=== PATIENT | female | born 1950 | race Caucasian/White ===

== ENCOUNTER 2016-04-24 19:07 | Observation (INO) | payer OTHER ==
[~2016-04-24] VITALS: Ht 160 cm; Wt 95.3 kg
[~2016-04-24 19:07] MED LIST: ABILIFY 10 MG10 MG PO; APA PO; ASPIRIN EC81 M1 PO; ATIVAN0.5 MG PO; ATIVAN1 M1 PO; ATIVAN1 MG PO; ATORVASTATIN CA80 MG PO; BENADRYL ALLERG25 M1 PO; BENTYL10 M1 PO; CLARITIN10 M1 PO; DILTIAZEM HCL240 MG PO; FARXIGA10 MG PO; FUROSEMIDE40 M1 PO; HYDROCODONE PO; HYDROCODONE/ACE1 TA2 PO; IRON SUPPLEMEN325 MG PO; LEVEMIR 10100 UNITS/ SC; LEVEMIR100 U/ML SC; LISINOPRIL40 MG PO; LOPID 600 MG T600 MG PO; LORATADINE10 M1 PO; LYRICA100 M1 PO; LYRICA75 MG PO; MASON NATURAL2000 IU PO; METFORMIN1000 MG PO; METOPROLOL SUC100 M2 PO; METOPROLOL SUC200 M1 PO; METOPROLOL SUC200 M2 PO; MOBIC7.5 MG PO; MULTIVITAMIN1 TAB PO; NOVOLOG100 U/ML SC; NOVOLOG100 UNIT/2 SC; OMEPRAZOLE MAGN20 MG PO; OMEPRAZOLE40 M1 PO; POTASSIUM GLUC595 MG PO; PROTONIX40 M3 PO; RITE AID BIO2500 MCG PO; TANZEUM30 MG IM; TANZEUM50 MG/0.5 SC; TOPAMAX 100MG100 M1 PO; TOPAMAX200 M1 PO; TOPAMAX200 MG PO; TRICOR 48MG48 MG PO; TRICOR48 M1 PO; TYLENOL500 MG PO; VENLAFAXINE HC100 M1 PO; VITAMIN D2400 UNIT PO; VITAMIN D3400 UNI1 PO; flexeril PO
--- NOTE | 2016-04-24 19:14 | NUR ---
PT STATES SHE WAS HAVING CHEST PAIN THAT HAS BEEN CONSTANT SINCE TUESDAY THAT RADIATES INTO HER LEFT SHOULDER AND DOWN HER ARM. PT STATES SHE DID NOT GET SOB BUT DOES HAVE DIAPHORESIS AT TIMES.
--- NOTE | 2016-04-24 19:29 | ED CARDIAC/CP/PALPITATIONS ---
History of Present Illness General Chief Complaint: Chest Pain Stated Complaint: CP Source: patient, family, old records Exam Limitations: no limitations Vital Signs & Intake/Output Vital Signs & Intake/Output Vital Signs Date Time Temp Pulse Resp B/P Pulse O2 O2 Flow FiO2 Ox Delivery Rate 04/24 2127 97.2 84 16 123/67 97 Room Air 04/24 2027 80 16 134/72 96 Room Air 04/24 1951 87 16 117/56 04/24 1938 Room Air 04/24 1913 97.6 89 16 134/80 97 Room Air Allergies Coded Allergies: shellfish derived (Severe, HIVES 05/13/15) Penicillins (RASH AND SWELLING 05/13/15) aspirin (UPSET STOMACH AND BLOATING 05/13/15) codeine (REALLY BAD STOMACH PAIN 05/13/15) Reconcile Medications Albiglutide (Tanzeum) 50 MG/0.5 ML PEN.INJCTR 50 UNITS SC QMON DM (Reported) Aripiprazole (Abilify) 10 MG TAB 1 TAB PO DAILY MENTAL HEALTH (Reported) Atorvastatin Calcium (Lipitor) 80 MG TABLET 1 TAB PO DAILY CHOLESTEROL ( Reported) Canagliflozin (Invokana) 100 MG TABLET 1 TAB PO DAILY DM (Reported) Cyanocobalamin (Vitamin B-12) (Vitamin B12) 2,500 MCG TABLET 1 TAB PO DAILY SUPPLEMENT (Reported) DILTIAZEM HCL (Diltiazem 24HR ER) 240 MG CAP.ER.24H 1 TAB PO DAILY HEART ( Reported) Fenofibrate (Tricor) 48 MG TABLET 1 TAB PO DAILY CHOLESTEROL/TRIGLYCERIDES ( Reported) Furosemide 40 MG TABLET 1 TAB PO DAILY DIURETIC (Reported) Insulin Aspart (Novolog) 100 UNIT/1 ML VIAL 0 SC SEE ADMIN CRITERIA Diabetes (Reported) BEFORE MEALS Blood Insulin Sugar Units <80 0 100-150 4 151-200 6 201-250 10 251-300 12 301-350 14 351-400 16 >400 18 units and call doctor Insulin Detemir (Levemir) 100 U/ML TOREY 20 UNITS SC BID DIABETES (Reported) Lisinopril 40 MG TABLET 1 TAB PO DAILY BP (Reported) Loratadine (Claritin) 10 MG TABLET 1 TAB PO DAILY ALLERGIES (Reported) Lorazepam (Ativan) 1 MG TABLET 2 TAB PO QAM ANXIETY (Reported) Meclizine HCl 25 MG TABLET 1 TAB PO TIDPRN UNKNOWN (Reported) Meloxicam 7.5 MG TABLET 1-2 TAB PO DAILY PAIN/INFLAMMATION (Reported) Metformin HCl 1,000 MG TABLET 2 TAB PO BID DM (Reported) Metoprolol Succinate 100 MG TAB.ER.24H 1 TAB PO DAILY HTN (Reported) Multivitamin (Multiple Vitamins) 1 TAB TAB 1 TAB PO DAILY SUPPLEMENT ( Reported) Pregabalin (Lyrica) 100 MG CAPSULE 2 CAP PO DAILY FIBROMYALGIA (Reported) Topiramate (Topamax) 200 MG TABLET 0.5 TAB PO BID Seizure (Reported) Venlafaxine HCl 100 MG TABLET 2 TAB PO DAILY MENTAL HEALTH (Reported) Triage Note: PT STATES SHE WAS HAVING CHEST PAIN THAT HAS BEEN CONSTANT SINCE TUESDAY THAT RADIATES INTO HER LEFT SHOULDER AND DOWN HER ARM. PT STATES SHE DID NOT GET SOB BUT DOES HAVE DIAPHORESIS AT TIMES. Triage Nurses Notes Reviewed? yes HPI: Patient is a 66-year-old female presents complaining of left-sided chest pain. Pain onset on , has been continuous for the past 2 days. Pain is a dull pain is currently 2-3 out of 10, at its worst it has been 4-5 out of 10. Patient reports that chest pain worsens with exertion. Patient has associated dyspnea with exertion. Intermittent in diaphoresis. Positive associated fatigue and lightheadedness intermittently. Patient reports she had a stress test 2 years ago that was unremarkable. Patient has an allergy to aspirin. Patient denies lower extremity pain, lower extremity swelling, palpitations, cough, fevers, chills, nausea, vomiting. (MICHELLE SHEEHAN) Past History Travel History Traveled to [place] past 21 day No Medical History Any Pertinent Medical History? see below for history Neurological: MENINGIOMA EENT: NONE Cardiovascular: AFIB, hypertension, hyperlipidemia Respiratory: NONE Gastrointestinal: NONE Hepatic: NONE Musculoskeletal: NONE Psychiatric: anxiety, depression Endocrine: diabetes (INSULIN DEPENDENT), thyroid nodules Blood Disorders: NONE Cancer(s): NONE HIDE TANNER/Reproductive: NONE History of MRSA: No History of VRE: No History of CDIFF: No Pneumonia Vaccine: 12/28/12 Surgical History Surgical History: appendectomy, hysterectomy, Knee surgey SINUS, LUMPECTOMY LEFT BREAST, MENINGIOMA RESECTION LEFT SHOULDER Psychosocial History Who do you live with Spouse Services at Home None What is your primary language [facility] Tobacco Use: Quit >30 days ago ETOH Use: denies use Illicit Drug Use: denies illicit drug use Family History Family History, If Any: MOTHER (Mother with ND in her 50's). ; Cause: Pneumonia. FATHER, ; Cause: Lung cancer. BROTHER, ; Cause: Brainstem hemorrhage. Hx Contributory? Yes (MICHELLE SHEEHAN) Review of Systems Review of Systems Constitutional: Reports: malaise. Denies: chills, fever. EENTM: Reports: no symptoms. Respiratory: Reports: short of breath (with exertion). Denies: cough, wheezing. Cardiovascular: Reports: see HPI. GI: Denies: abdominal pain, nausea, vomiting. Genitourinary: Reports: no symptoms. Musculoskeletal: Denies: back pain, neck pain. Skin: Reports: no symptoms. Neurological/Psychological: Reports: no symptoms. Hematologic/Endocrine: Reports: no symptoms. Immunologic/Allergic: Reports: no symptoms. (MICHELLE SHEEHAN) Physical Exam Physical Exam General Appearance: well developed/nourished, alert, awake Head: atraumatic, normal appearance Eyes: Bilateral: normal appearance, PERRL, EOMI. Ears, Nose, Throat: normal pharynx, normal ENT inspection, hearing grossly normal Neck: normal inspection, supple, full range of motion Respiratory: no respiratory distress, lungs clear, mild tenderness left anterior chest wall Cardiovascular: regular rate/rhythm (no appreciable murmur or rub) Gastrointestinal: soft, non-tender Back: normal inspection, normal range of motion Extremities: normal inspection, normal capillary refill, normal range of motion, no edema, no calf tenderness Neurologic/Psych: no motor/sensory deficits, awake, alert, oriented x 3, normal mood/affect Skin: intact, normal color, warm/dry Lymphatic: no anterior cervical rosy Core Measures ACS in differential dx? Yes ASA ordered for poss ACS? No-d/t known allergy Severe Sepsis Present: No Septic Shock Present: No (MICHELLE SHEEHAN) Progress Differential Diagnosis: AMI, aortic dissection, atrial fibrillation, costochondritis, musculoskeletal pain, pericarditis, pneumonia, PSVT, pulmonary embolism, PUD/GERD, unstable angina, V-fib/V-Tach Plan of Care: Orders Procedure Date/time Status Consistent Carbohydrate 2 04/25 B Active TROPONIN LEVEL 04/25 0100 Active Vital Signs 04/24 2228 Active Teach/Educate 04/24 2228 Active Nutritional Intake, Monitor 04/24 2228 Active Isolation 04/24 2228 Active Intake & Output 04/24 2228 Active Patient Care Conference 04/24 2228 Active Activity/Ambulation 04/24 2228 Active Pathway - chart 04/24 2219 Active Pathway - chart 04/24 2132 Active House Staff 04/24 2132 Active Code Status 04/[address] in observation 04/24 2041 Active Patient Data 04/24 2040 Active OXYGEN SETUP (GEN) 04/24 2019 Active Saline Lock 04/[address] in observation 04/24 2019 Active Vital Signs 04/24 2019 Active Activity/Ambulation 04/24 2019 Active Code Status 04/24 2019 Complete Telemetry/Roll Forming Supervisor 04/24 2004 Active Add-on Test (ER Only) 04/24 2001 Active Intake & Output 04/24 194 Active PARTIAL THROMBOPLASTIN TIME 04/24 1923 Complete PROTHROMBIN TIME 04/24 1923 Complete TROPONIN LEVEL 04/24 1917 Complete MAGNESIUM 04/24 1917 Complete COMPREHENSIVE METABOLIC PANEL 04/24 1917 Complete CHOLESTEROL 04/24 1917 Complete CBC WITHOUT DIFFERENTIAL 04/24 1917 Complete EKG 04/24 190 Active VTE Mechanical Prophylaxis 04/24 UNK Active FingerStick- Glucose 04/24 UNK Active EKG 04/24 UNK Active Current Medications Sig/Jayy Start time Last Medication Dose Stop Time Status Admin Atorvastatin Calcium 80 MG 2200 04/25 220 AC (Lipitor) Aripiprazole 10 MG DAILY 04/25 1000 AC (Abilify) Cyanocobalamin 2,500 MCG DAILY 04/25 1000 AC (Vitamin B12) Diltiazem HCl 240 MG DAILY 04/25 1000 AC (Cardizem CD) Fenofibrate 48 MG DAILY 04/25 1000 AC (Tricor) Furosemide 40 MG DAILY 04/25 1000 AC (Lasix) Lisinopril 40 MG DAILY 04/25 1000 AC (Prinivil) Loratadine 10 MG DAILY 04/25 1000 AC (Claritin) Lorazepam 2 MG QAM 04/25 1000 AC (Ativan) Multivitamins 1 TAB DAILY 04/25 1000 AC Therapeutic (Theragran-M Vitamins Tabs) Pregabalin 200 MG DAILY 04/25 1000 AC (Lyrica) Venlafaxine HCl 200 MG DAILY 04/25 1000 AC (Effexor) Acetaminophen 650 MG Q6P PRN 04/24 2229 AC (Tylenol) Lidocaine 1 PAT Q24H 04/24 2229 AC (Lidoderm) Morphine Sulfate 2 MG Q4P PRN 04/24 2229 AC (Morphine) Nitroglycerin 0.2 MG DAILY PRN 04/24 2229 AC (Transderm Nitro 5MG (0.2MG/Hr)) Oxycodone HCl 5 MG Q6H 04/24 2229 AC (Roxicodone) Topiramate 100 MG BID 04/24 2214 AC (Topamax) Insulin Detemir 20 UNITS BID 04/24 2204 AC (Levemir) Heparin Sodium 5,000 UNIT Q8 04/24 2199 AC (Porcine) Laboratory Tests 04/24/161925: Anion Gap 15, Estimated GFR > 60, BUN/Creatinine Ratio 25.0, Glucose 210 H, Calcium 9.6, Magnesium 2.1, Total Bilirubin 0.4, AST 21, ALT 39, Alkaline Phosphatase 144 H, Troponin I < 0.01, Total Protein 7.3, Albumin 4.3, Globulin 3.0, Albumin/Globulin Ratio 1.4, Cholesterol 200, CBC w Diff NO MAN DIFF REQ, RBC 5.80 H, MCV 60.3 L, MCH 18.5 L, RDW 21.3 H, MPV 8.4, Gran % 49.8, Lymphocytes % 39.2, Monocytes % 7.6, Eosinophils % 3.1, Basophils % 0.3, Absolute Granulocytes 3.7, Absolute Lymphocytes 2.9, Absolute Monocytes 0.6, Absolute Eosinophils 0.2, Absolute Basophils 0, PUBS MCHC 30.7 L 04/24/161923: PT 9.9, INR 0.94, APTT 26 04/24/2016 8:04:11 PM: Patient's pain went from 2-3/10 down to a 1/10 after sublingual nitroglycerin. Nitropaste ordered. Discussed with Dr. Blackwood. Dr. Kiah marino to discuss 04/24/2016 8:11:31 PM: Discussed with Dr. Dupont: Recommend bring patient in for observation, continue nitroglycerin. No heparin or beta blockers at this time. Dr. Blackwood discussed case with Dr. Albert covering for Dr. Nevarez to bring patient in for telemetry observation. (MICHELLE SHEEHAN) Diagnostic Imaging: Viewed by Me: Radiology Read. Discussed w/RAD: Radiology Read. Radiology Impression: PATIENT: MARIA ALEJANDRA RUBIO PRESENT AGE: 66 PATIENT ACCOUNT NO: [id number] : 52 LOCATION: [facility] ORDERING PHYSICIAN: MICHELLE EARLY SERVICE DATE: 04/24/16 EXAM TYPE: RAD - XRY-PORTABLE CHEST XRAY EXAMINATION: XR PORTABLE CHEST CLINICAL INFORMATION: Chest pressure COMPARISON: November 24, 2015 chest x-ray TECHNIQUE: Portable AP view of the chest was obtained. FINDINGS: The cardiomediastinal silhouette is normal. The pulmonary vascularity is normal. Lungs are clear. Elevation of diaphragmatic again noted, similar to prior exam. No pleural effusions or pneumothorax seen. IMPRESSION: Stable chest x-ray without acute cardiopulmonary finding. DICTATED BY: PRAVIN ASHLEY MD DATE/TIME DICTATED:04/24/161999 RAILROAD TRACK MECHANIC:DK DATE/TIME TRANSCRIBED:04/24/161999 CONFIDENTIAL, DO NOT COPY WITHOUT APPROPRIATE AUTHORIZATION. <Electronically signed in Other Vendor System> SIGNED BY: PRAVIN ASHLEY MD 04/24/162003 Initial ED EKG: normal axis, normal intervals, normal p-waves, normal QRS complex, normal sinus rhythm, no ST T wave changes Prior EKG: unchanged Rhythm Strip: normal sinus rhythm (MICHELLE SHEEHAN) Departure Departure Disposition: STILL A PATIENT Condition: Stable Clinical Impression Primary Impression: Chest pain Qualifiers: Chest pain type: unspecified Qualified Code: R07.9 - Chest pain, unspecified Referrals: DARRIN NEVAREZ MD (PCP/Family) Departure Forms: Customer Survey General Discharge Information Observation Note Spoke With: YANELIS ALBERT MD Patient In: Non-ED OBS Care Area Rationale for Observation: My rational for observation is as follows: Serial EKGs, serial troponins, cardiology consultation, continuous cardiac monitoring. Patient with multiple comorbidities that puts her at high risk for coronary artery disease with chest pain that was responsive to nitroglycerin. (MICHELLE SHEEHAN) PA/THERMOCOUPLE TESTER Co-Sign Statement Statement: ED Attending supervision documentation- x I saw and evaluated the patient. I have also reviewed all the pertinent lab results and diagnostic results. I agree with the findings and the plan of care as documented in the PA's/THERMOCOUPLE TESTER's documentation. [] I have reviewed the ED Record and agree with the PA's/THERMOCOUPLE TESTER's documentation. [] Additions or exceptions (if any) to the PAs/THERMOCOUPLE TESTER's note and plan are summarized below: [] (BEST JOHNSON,ISMAEL) Critical Care Note Critical Care Note Critical Care Time: non-applicable (LETI EARLY,MICHELLE)
[2016-04-24 19:33] LABS: ABSOLUTE BASOPHIL COUNT 0 /CUMM (0.0-0.2); ABSOLUTE EOSINOPHIL COUNT 0.2 /CUMM (0.0-0.7); ABSOLUTE GRANULOCYTE CT 3.7 /CUMM (1.4-6.5); ABSOLUTE LYMPH COUNT 2.9 /CUMM (1.2-3.4); ABSOLUTE MONOCYTE COUNT 0.6 /CUMM (0.10-0.60); BASOPHIL % 0.3 % (0.0-2.0); EOSINOPHIL % 3.1 % (0-5); GRANULOCYTE % 49.8 % (42.2-75.2); MEAN CORPUSCULAR HGB 18.5 PG (27.0-31.0); MEAN CORPUSCULAR HGB CONC 30.7 G/DL (33.0-37.0); MEAN CORPUSCULAR VOLUME 60.3 FL (81.0-99.0); MEAN PLATELET VOLUME 8.4 FL (7.4-10.4); PLATELET COUNT 244 /CUMM (130-400); RBC DISTRIBUTION WIDTH 21.3 % (11.5-14.5); WHITE BLOOD CELL COUNT 7.4 /CUMM (4.8-10.8)
--- NOTE | 2016-04-24 19:40 | NUR ---
PCXR IN PROCESS
--- NOTE | 2016-04-24 19:56 | NUR ---
PT REPORTED PRIOR TO 0.4MG SL NITRO ADMINISTRATION CHEST PAIN WAS 2/3 ON SCALE FROM 1-10. AFTER NITRO ADMINISTRATION PAIN NOW 1/10
--- NOTE | 2016-04-24 20:04 | RADIOLOGY REPORT ---
EXAMINATION: XR PORTABLE CHEST CLINICAL INFORMATION: Chest pressure COMPARISON: November 24, 2015 chest x-ray TECHNIQUE: Portable AP view of the chest was obtained. FINDINGS: The cardiomediastinal silhouette is normal. The pulmonary vascularity is normal. Lungs are clear. Elevation of diaphragmatic again noted, similar to prior exam. No pleural effusions or pneumothorax seen. IMPRESSION: Stable chest x-ray without acute cardiopulmonary finding.
[2016-04-24 20:24] LABS: PT 9.9 SEC (9.4-12.5); PTT 26 SEC (25-37)
[2016-04-24] MEDS ORDERED: TANZEUM50 MG/0.5 SC (20:39)
[2016-04-24] MEDS ORDERED: INVOKANA100 M1 PO (20:41)
[2016-04-24] MEDS ORDERED: VITAMIN B122500 MC1 PO (20:42)
[2016-04-24] MEDS ORDERED: CYCLOBENZAPRINE5 M2 PO (20:44)
[2016-04-24] MEDS ORDERED: MELOXICAM7.5 M1 PO (20:50)
[2016-04-24] MEDS ORDERED: METFORMIN HCL1000 M1 PO (20:51)
[2016-04-24] MEDS ORDERED: MECLIZINE HCL25 MG PO (20:51)
--- NOTE | 2016-04-24 21:01 | History & Physical ---
ALEXANDRA JOHNSON,[facility] 04/24/16 2100: General Information and HPI MD Statement: I have seen and personally examined MARIA ALEJANDRA HOLLINGSWORTH and documented this H&P. The patient is a 66 year old F who presented with a patient stated chief complaint of chest pain. Source of Information: patient, family, old records Exam Limitations: no limitations History of Present Illness: This is a 66-year-old lady with past medical history of type 2 diabetes mellitus , stroke, seizures(status post meningioma resection after craniotomy), hypertension, hyperlipidemia, gastric polyps(EGD 6 years ago), IBD, depression, baseline dizziness and history of fall and breaking her back, who presented to the emergency room complaining of chest pain. Patient stated that her symptoms began on 04/20/2016 with pain rated at a 4 out of 10 in severity. Described as a sharp pain. Worse with exertion. Patient did state that the pain radiated to her left arm and to her back. Pain was associated with subjective diaphoresis. Over last 48 hours the patient has continued to feel fatigued and shortness of breath on exertion. She also states that the pain is worse with palpation and deep inspiration. She denies that the chest pain is related to position. Patient states that she finally presented to the emergency department today even though the pain had been present for the last 48 hours because she was concerned that the pain did not ablate. Patient denies any exposure to any sick contacts and no recent travel. Patient denies any fever, chills, nausea, vomiting. Patient's primary care physician is Dr. Nevarez. Patient states that her lead technical writer is Dr. Patel who she saw 3 months ago. Allergies/Medications Allergies: Coded Allergies: shellfish derived (Severe, HIVES 05/13/15) Penicillins (RASH AND SWELLING 05/13/15) aspirin (UPSET STOMACH AND BLOATING 05/13/15) codeine (REALLY BAD STOMACH PAIN 05/13/15) Home Med list Albiglutide (Tanzeum) 50 MG/0.5 ML PEN.INJCTR 50 UNITS SC QMON DM (Reported) Aripiprazole (Abilify) 10 MG TAB 1 TAB PO DAILY MENTAL HEALTH (Reported) Atorvastatin Calcium (Lipitor) 80 MG TABLET 1 TAB PO DAILY CHOLESTEROL ( Reported) Canagliflozin (Invokana) 100 MG TABLET 1 TAB PO DAILY DM (Reported) Cyanocobalamin (Vitamin B-12) (Vitamin B12) 2,500 MCG TABLET 1 TAB PO DAILY SUPPLEMENT (Reported) DILTIAZEM HCL (Diltiazem 24HR ER) 240 MG CAP.ER.24H 1 TAB PO DAILY HEART ( Reported) Fenofibrate (Tricor) 48 MG TABLET 1 TAB PO DAILY CHOLESTEROL/TRIGLYCERIDES ( Reported) Furosemide 40 MG TABLET 1 TAB PO DAILY DIURETIC (Reported) Insulin Aspart (Novolog) 100 UNIT/1 ML VIAL 0 SC SEE ADMIN CRITERIA Diabetes (Reported) BEFORE MEALS Blood Insulin Sugar Units <80 0 100-150 4 151-200 6 201-250 10 251-300 12 301-350 14 351-400 16 >400 18 units and call doctor Insulin Detemir (Levemir) 100 U/ML TOREY 20 UNITS SC BID DIABETES (Reported) Lisinopril 40 MG TABLET 1 TAB PO DAILY BP (Reported) Loratadine (Claritin) 10 MG TABLET 1 TAB PO DAILY ALLERGIES (Reported) Lorazepam (Ativan) 1 MG TABLET 2 TAB PO QAM ANXIETY (Reported) Meclizine HCl 25 MG TABLET 1 TAB PO TIDPRN UNKNOWN (Reported) Meloxicam 7.5 MG TABLET 1-2 TAB PO DAILY PAIN/INFLAMMATION (Reported) Metformin HCl 1,000 MG TABLET 2 TAB PO BID DM (Reported) Metoprolol Succinate 100 MG TAB.ER.24H 1 TAB PO DAILY HTN (Reported) Multivitamin (Multiple Vitamins) 1 TAB TAB 1 TAB PO DAILY SUPPLEMENT ( Reported) Pregabalin (Lyrica) 100 MG CAPSULE 2 CAP PO DAILY FIBROMYALGIA (Reported) Topiramate (Topamax) 200 MG TABLET 0.5 TAB PO BID Seizure (Reported) Venlafaxine HCl 100 MG TABLET 2 TAB PO DAILY MENTAL HEALTH (Reported) Compliance With Home Meds: FAIR Past History Travel History Traveled to [place] past 21 day No Medical History Neurological: MENINGIOMA EENT: NONE Cardiovascular: AFIB, hypertension, hyperlipidemia Respiratory: NONE Gastrointestinal: NONE Hepatic: NONE Musculoskeletal: NONE Psychiatric: anxiety, depression Endocrine: diabetes (INSULIN DEPENDENT), thyroid nodules Blood Disorders: NONE Cancer(s): NONE FISHING MANAGER/Reproductive: NONE History of MRSA: No History of VRE: No History of CDIFF: No Surgical History Surgical History: appendectomy, hysterectomy, Knee surgey SINUS, LUMPECTOMY LEFT BREAST, MENINGIOMA RESECTION LEFT SHOULDER Past Family/Social History Family History Relations & Conditions if any MOTHER (Mother with GA in her 50's). ; Cause: Pneumonia. FATHER, ; Cause: Lung cancer. BROTHER, ; Cause: Brainstem hemorrhage. Psychosocial History Where do you live? Home Who Do You Live With? spouse Services at Home: None Primary Language: Amharic Smoking Status: Former Smoker ETOH Use: denies use Illicit Drug Use: denies illicit drug use Functional Ability ADLs Independent: dressing, eating, toileting, bathing. Ambulation: independent IADLs Independent: shopping, housework, finances, food prep, telephone, transportation , medication admin. Review of Systems Review of Systems Constitutional: Reports: diaphoresis, malaise, weakness. Denies: fever. Cardiovascular: Reports: chest pain, syncope. Denies: edema, orthopena, palpitations, peripheral edema. Respiratory: Denies: cough, hemoptysis, orthopnea, short of breath. GI: Denies: abdominal pain, bloating, constipation, diarrhea, distention, bowel incontinence, nausea, changes in stool, vomiting. Genitourinary: Denies: discharge, dysuria, frequency, hematuria. Musculoskeletal: Reports: back pain. Denies: gout, joint pain, joint swelling, muscle pain. Exam & Diagnostic Data Last 24 Hrs of Vital Signs/I&O Vital Signs Date Time Temp Pulse Resp B/P Pulse O2 O2 Flow FiO2 Ox Delivery Rate 04/24 2127 97.2 84 16 123/67 97 Room Air 04/24 2027 80 16 134/72 96 Room Air 04/24 1951 87 16 117/56 04/24 1939 Room Air 04/24 1913 97.6 89 16 134/80 97 Room Air Intake & Output 04/25 0800 04/25 0000 04/24 1600 Intake Total 100 Output Total Balance 100 Intake, Oral 100 Patient 95.254 kg Weight Physical Exam General Appearance Alert, Oriented X3, Cooperative Lymphatic Cervical nl Cardiovascular Normal S1, Normal S2 Lungs Clear to Auscultation Abdomen Normal Bowel Sounds, Soft, No Tenderness Neurological Normal Speech, Strength at 5/5 X4 Ext Extremities No Clubbing, No Cyanosis, No Edema Vascular Normal Pulses Last 24 Hrs of Labs/Curtis: Laboratory Tests 04/24/161925: Anion Gap 15, Estimated GFR > 60, BUN/Creatinine Ratio 25.0, Glucose 210 H, Calcium 9.6, Magnesium 2.1, Total Bilirubin 0.4, AST 21, ALT 39, Alkaline Phosphatase 144 H, Troponin I < 0.01, Total Protein 7.3, Albumin 4.3, Globulin 3.0, Albumin/Globulin Ratio 1.4, Cholesterol 200, CBC w Diff NO MAN DIFF REQ, RBC 5.80 H, MCV 60.3 L, MCH 18.5 L, RDW 21.3 H, MPV 8.4, Gran % 49.8, Lymphocytes % 39.2, Monocytes % 7.6, Eosinophils % 3.1, Basophils % 0.3, Absolute Granulocytes 3.7, Absolute Lymphocytes 2.9, Absolute Monocytes 0.6, Absolute Eosinophils 0.2, Absolute Basophils 0, PUBS MCHC 30.7 L 04/24/161923: PT 9.9, INR 0.94, APTT 26 Assessment/Plan Assessment: This is a 66-year-old lady with past medical history of uncontrolled diabetes mellitus who presents to the emergency department with chest pain. We will admit the patient to the telemetry floor for subsequent monitoring. Her chest pain is likely musculoskeletal in origin given its root every 2 stability and worsening with palpation. We will however rule out ACS with serial troponins and EKGs. Rule out ACS Trend troponins and EKGs every 6 hours Initial troponin was Cardiology consult in the a.m. patient of Dr. Patel Chest x-ray to rule out any infectious agent Aspirin, nitroglycerin, Statin Orthostatic rule out any pharmacological agents that might be contributing to orthostasis. History of diabetes Begin patient on Novolin sliding scale Keep blood sugars below 150 T Levemir 20 units twice a day. Hemoglobin A1c in a.m. if above 9.0 consider endocrinology consult Seizure disorder Patient's seizures are likely due to resection. We will continue patient on home medication Topiramate 100mg. Orthostatic changes. Likely multifactorial and are willing to medication regimen and will may also include worsening diabetes, micro-vessel and neurological changes. PT consult on Tuesday. If patient continues to experience worsening orthostasis may consider follow up as an outpaitnet. Chronic back pain Pain relief with NSAID, ketorolac If pain worsens consider morphine. Lidocaine patch for added comfort PT consult in a.m. History of depression Continue venlafaxine DVT prophylaxis ALP S And Lovenox Diet Consistent carbohydrate diet two, sodium restriction Code Full code As Ranked By This Provider Problem List: 1. Abdominal pain 2. Diabetes mellitus 3. Seizure 4. ACS (acute coronary syndrome) 5. Chest pain Qualifiers Chest pain type: unspecified Qualified Code: R07.9 - Chest pain, unspecified 6. Hyperlipemia 7. Depression 8. Low back pain Core Measures/Miscellaneous Acute Coronary Syndrome ACS Diagnosis: No Cerebrovascular Accident CVA/TIA Diagnosis: No Congestive Heart Failure CHF Diagnosis: No Venous Thromboembolism VTE Risk Factors: Age > 40 VTE Prophylaxis Ordered Inpt: Pharm- Heparin No [facility] VTE prophylaxis d/t: No contraindications No VTE Pharm Prophylaxis d/t: No contraindications VTE Diagnosis: No VTE Type: NONE VTE Confirmed by (Test): NONE Severe Sepsis Severe Sepsis Present: No Septic Shock Septic Shock Present: No Miscellaneous Documentation Attending Case Discussed With: DARRIN NEVAREZ MD Primary Care Physician: DARRIN NEVAREZ MD Patient sees these Specialists Dr Patel Level of Patient Care: Telemetry DANARASHMI 04/24/16 2101: Resident Review Statement Resident Statement: examined this patient, discussed with recruitment intern, agreed with recruitment intern, discussed with family, reviewed EMR data (avail), discussed with nursing , discussed with case mgmt, reviewed images, amended to note Other Findings: Patient is a 66-year-old, obese white woman came to the ED complainig of chest pain. patient's reports 2 day-long continous Chest pain, which was started on at 2:30 AM. According to her she woke up at morning due to discomfort and felt a vague/pressure type/midsternal 3-4 out of 10 on pain scale chest pain/radiates to back, left arm.chest pain is nonexertional, nor reproducible, but it is pleuritic and worsens with deep inspiration. in the emergency room she received nitroglycerin that relieved her chest pain. Associated with exertional dyspnea, severe fatigue. associated with dyspnea on exertion, and severe fatigue for the past 2 days. Patient denies any palpitation,feeling clammy, symptoms of URI,fever chills recent travel or contact with sick person,nausea vomiting diarrhea for the past few days. Her past medical history significant for uncontrolled type 2 diabetes mellitus ( last HbA1c 9.2 at January 2016), stroke, seizures(status post meningioma resection after craniotomy), hypertension, hyperlipidemia, gastric polyps(EGD 6 years ago), IBD, depression, baseline dizziness and history of fall and breaking her back. Former smoker quit 24 years ago, denies EtOH use, family history positive for MRI in mother at age of 53. Lives with her . Has a very sedentary lifestyle. And uses cane for ambulation. Physical exam: Gen. appearance: Obese, alert oriented 3,not acute distress, HEENT: PERRLA, moist mucous membranes Chest: Regular breath sounds, CVS: S1 and S2 heard, tachycardic, no murmurs rubs or gallops, + orthostatic changes; Abdomen: Soft, Extremities: Pulses intact, no pedal edema; neurology exam: Alert and oriented, no motor sensory deficit. List of problems #1 atypical chest pain: Patient has atypical chest pain, with no EKG change, previously worked up in 2013(2015 pharmacological nuclear stres, showed stress- induced myocardial ischemia). Cardiac risks: Obesity, sedentary lifestyle, hyperlipidemia, positive family history. The current chest pain is not reproducible, nor is exertional, it is pleuritic. The origin of the current pain could be acute coronary syndrome, costochondritis, anxiety and depression, gastroesophageal reflux disease. Plan * Admit to telemetry unit or observation * Cardiology, Dr. Dupont, was consulted. Cardiology keep the patient off beta haydee and heparin * Continue atorvastatin-home dose * Nitroglycerin patch 0.2 mg daily; if chest pain persisted or worsened * Trend troponin at 1 AM with EKG * Patient is not on respiratory distress; O2 supplementation would not benefit the patient * If chest pain persisted morphine for chest pain * Patient could have another pharmacological nuclear stress test * Continue lisinopril and diltiazem in the a.m. * Metoprolol was held per cardiology-possible stress test * follow cardiology recommendation #2 History of uncontrolled diabetes mellitus: HbA1C: Point 0.2 in January 2016 * 3 times a day Accu-Cheks * Hold metformin, and Tanzeum and Invokana * Continue Levemir 20 units twice a day * Insulin aspart sliding scale 3 times a day before meals * Diabetes diets #3 positive orthostatic change: Patient does not seem to be dehydrated and does not have any source of volume/blood loss. The possible explanation for her orthostatic change/history of fall could be autonomic nervous system involvements in the setting of her uncontrolled diabetes. * PT/OT consult in the a.m. * Fall precaution #4 Seizure disorder-patient is status post meningioma resection after craniotomy * We will continue home medication Topamax #4 Depression: * Continue venlafaxine-home dose #5 history of anxiety * Continue 1 mg by mouth Ativan per needed #6 sleep disorder * Continue Abilify-home dose #7 pain management * Lidocaine patch * Ibuprofen for mild/moderate pain * Pregabalin * Morphine for severe pain .DVT prophylaxis heparin 5000 units subcutaneous every 8h full code YANELIS ALBERT MD 04/25/16 1248: Attending MD Review Statement Attending Statement Attending MD Statement: examined this patient, discuss w/resident/PA/RECORDS MANAGEMENT SPECIALIST, agreed w/resident/PA/RECORDS MANAGEMENT SPECIALIST, discussed with family, reviewed EMR data (avail), reviewed images, amended to note Attending Assessment/Plan: Mrs. Hollingsworth was interviewed and examined. Her EMR was reviewed. I am in agreement with the findings as presented in the history and physical, diagnoses, and plan as dictated by a resident housestaff.
[2016-04-24 22:30] VITALS: BP 130/68
--- NOTE | 2016-04-25 08:09 | PN- Housestaff ---
Subjective Follow-up For: Rule out ACS Subjective: She seen and examined this morning. She was lying in bed in no acute distress, no chest pain, sob, dizziness, afebrile, vitals wnl. Review of Systems Constitutional: Reports: see HPI. Objective Last 24 Hrs of Vital Signs/I&O Vital Signs Date Time Temp Pulse Resp B/P Pulse O2 O2 Flow FiO2 Ox Delivery Rate 04/25 1533 98.4 99 18 132/72 93 Room Air 04/25 0905 138/64 04/25 0817 98.3 94 18 126/62 93 Room Air 04/24 2229 97.9 84 20 130/68 94 Room Air 04/24 2127 97.2 84 16 123/67 97 Room Air 04/24 2027 80 16 134/72 96 Room Air 04/24 1951 87 16 117/56 04/24 1939 Room Air Intake & Output 04/25 1600 04/25 0800 04/25 0000 Intake Total 400 120 300 Output Total Balance 400 120 300 Intake, Oral 400 120 300 Patient 95.254 kg Weight Physical Exam General Appearance: Alert, Oriented X3, Cooperative, No Acute Distress Cardiovascular: Regular Rate, Normal S1, Normal S2, No Murmurs Lungs: Clear to Auscultation, Normal Air Movement Abdomen: Normal Bowel Sounds, Soft, No Tenderness Extremities: No Clubbing, No Cyanosis Current Medications: Current Medications Sig/Jayy Start time Last Medication Dose Route Stop Time Status Admin Acetaminophen 650 MG .STK-MED ONE 04/25 0630 DC PO 04/25 0631 Acetaminophen 650 MG .STK-MED ONE 04/25 0155 DC PO 04/25 0156 Acetaminophen 650 MG Q6P PRN 04/24 2230 AC 04/25 PO 0632 Aripiprazole 10 MG DAILY 04/25 1000 AC 04/25 PO 0904 Atorvastatin Calcium 80 MG 04/25 AC PO Cyanocobalamin 2,500 MCG DAILY 04/25 1000 AC 04/25 PO 0907 Diltiazem HCl 240 MG DAILY 04/25 1000 AC 04/25 PO 0904 Fenofibrate 48 MG DAILY 04/25 1000 AC 04/25 PO 0904 Furosemide 40 MG DAILY 04/25 1000 AC 04/25 PO 0904 Heparin Sodium 5,000 UNIT Q8 04/24 2199 AC 04/25 (Porcine) SC 1403 Insulin Aspart 0 TIDAC 04/25 0800 AC 04/25 SC 1740 Insulin Detemir 20 UNITS BID 04/24 2205 AC 04/25 SC 0906 Lidocaine 1 PAT Q24H 04/24 2230 AC 04/25 EXT 0000 Lisinopril 40 MG DAILY 04/25 1000 AC 04/25 PO 0905 Loratadine 10 MG DAILY 04/25 1000 AC 04/25 PO 0904 Lorazepam 2 MG QAM 04/25 1000 AC 04/25 PO 0905 Morphine Sulfate 2 MG Q4P PRN 04/24 2230 AC IV Multivitamins 1 TAB DAILY 04/25 1000 AC 04/25 Therapeutic PO 0904 Nitroglycerin 0.4 MG DAILY 04/25 1604 AC 04/25 TOP 1740 Nitroglycerin 0.2 MG DAILY PRN 04/24 223 [place] TOP Nitroglycerin 1 GM ONCE ONE 04/24 2014 DC 04/24 TOP 04/24 Nitroglycerin 0 .STK-MED ONE 04/24 2002 OH TOP Nitroglycerin 0 .STK-MED ONE 04/24 1949 [facility] Nitroglycerin 0.4 MG ONCE ONE 04/24 194 DC 04/24 SL 04/24 194 1950 Omeprazole 40 MG BID 04/25 2200 AC PO Oxycodone HCl 5 MG Q6H 04/24 2230 AC 04/25 PO 1739 Patient Medication 1 UNIT ONE NR 04/25 1615 DC Teaching ED 04/25 1700 Pregabalin 200 MG DAILY 04/25 1000 AC 04/25 PO 0905 Topiramate 100 MG BID 04/24 2215 AC 04/25 PO 0904 Venlafaxine HCl 200 MG DAILY 04/25 1000 AC 04/25 PO 0904 Last 24 Hrs of Lab/Curtis Results Last 24 Hrs of Labs/Mics: Laboratory Tests 04/25/16 0100: Troponin I < 0.01, Triglycerides 497 H, Cholesterol 173, LDL Cholesterol, Calc ND, HDL Cholesterol 35 L, Cholesterol/HDL Ratio 5 H 04/24/16 1926: Anion Gap 15, Estimated GFR > 60, BUN/Creatinine Ratio 25.0, Glucose 210 H, Calcium 9.6, Magnesium 2.1, Total Bilirubin 0.4, AST 21, ALT 39, Alkaline Phosphatase 144 H, Troponin I < 0.01, Total Protein 7.3, Albumin 4.3, Globulin 3.0, Albumin/Globulin Ratio 1.4, Cholesterol 200, CBC w Diff NO MAN DIFF REQ, RBC 5.80 H, MCV 60.3 L, MCH 18.5 L, RDW 21.3 H, MPV 8.4, Gran % 49.8, Lymphocytes % 39.2, Monocytes % 7.6, Eosinophils % 3.1, Basophils % 0.3, Absolute Granulocytes 3.7, Absolute Lymphocytes 2.9, Absolute Monocytes 0.6, Absolute Eosinophils 0.2, Absolute Basophils 0, PUBS MCHC 30.7 L Assessment/Plan Assessment: This is a 66-year-old lady with past medical history of uncontrolled diabetes mellitus who presents to the emergency department with chest pain. We will admit the patient to the telemetry floor for subsequent monitoring. Her chest pain is likely musculoskeletal in origin given its root every 2 stability and worsening with palpation. We will however rule out ACS with serial troponins and EKGs. Rule out ACS Trend troponins and EKGs every 6 hours Cardiology following, will follow recs. No Aspirin due to allegry, nitroglycerin, Statin History of diabetes Begin patient on Novolin sliding scale Keep blood sugars below 150 T Levemir 20 units twice a day. Hemoglobin A1c in a.m. if above 9.0 consider endocrinology consult Seizure disorder Patient's seizures are likely due to resection. We will continue patient on home medication Topiramate 100mg. Orthostatic changes. Likely multifactorial and are willing to medication regimen and will may also include worsening diabetes, micro-vessel and neurological changes. PT consult on Tuesday. If patient continues to experience worsening orthostasis may consider follow up as an outpaitnet. Chronic back pain Pain relief with NSAID, ketorolac If pain worsens consider morphine. Lidocaine patch for added comfort PT consult in a.m. History of depression Continue venlafaxine DVT prophylaxis ALP S And Lovenox Diet Consistent carbohydrate diet two, sodium restriction Code Full code Problem List: 1. Chest pain Pain Ratin Pain Location: None Pain Goal: Remain pain free Pain Plan: Mild pain pathway Tomorrow's Labs & Rationales: CBC for monitoring of H&H DP folate monitoring
[2016-04-25 08:17] VITALS: BP 126/62
--- NOTE | 2016-04-25 09:10 | Cons- Cardiology ---
General Information and HPI Consulting Request Date of Consult: 04/25/16 Requested By: DARRIN LUEVANO MD History of Present Illness: Liseth is a 66 year old female with history of hypertension, dyslipidemia, prior CVA and diabetes who presents with chest discomfort. It should also be noted that she carries a history of fibromyalgia and duodenitis. This patient has intermittent chest discomfort at her baseline which became more prolonged this past . It is described as a moderate dull discomfort that radiates to her neck and left shoulder. The discomfort is worse with activity but does not completely resolve with rest. It was not helped by TUMS. This discomfort was associated with diaphoresis, shortness of breath, ligtheadedness and palpitations. There is no clear relationship to eating but it is a bit worse with deep inspiration and manual palpation. At her baseline, this patient is only mildly active which she attributes to lumbar back pain. Cardiac workup has include an echocardiogram showing a normal EF with mild left ventricular hypertrophy and no significant valvular disease. Her last stress test was about two years ago and was negative for ischemia. Allergies/Medications Allergies: Coded Allergies: shellfish derived (Severe, HIVES 05/13/15) Penicillins (RASH AND SWELLING 05/13/15) aspirin (UPSET STOMACH AND BLOATING 05/13/15) codeine (REALLY BAD STOMACH PAIN 05/13/15) Home Med List: Albiglutide (Tanzeum) 50 MG/0.5 ML PEN.INJCTR 50 UNITS SC QMON DM (Reported) Aripiprazole (Abilify) 10 MG TAB 1 TAB PO DAILY MENTAL HEALTH (Reported) Atorvastatin Calcium (Lipitor) 80 MG TABLET 1 TAB PO DAILY CHOLESTEROL ( Reported) Canagliflozin (Invokana) 100 MG TABLET 1 TAB PO DAILY DM (Reported) Cyanocobalamin (Vitamin B-12) (Vitamin B12) 2,500 MCG TABLET 1 TAB PO DAILY SUPPLEMENT (Reported) DILTIAZEM HCL (Diltiazem 24HR ER) 240 MG CAP.ER.24H 1 TAB PO DAILY HEART ( Reported) Fenofibrate (Tricor) 48 MG TABLET 1 TAB PO DAILY CHOLESTEROL/TRIGLYCERIDES ( Reported) Furosemide 40 MG TABLET 1 TAB PO DAILY DIURETIC (Reported) Insulin Aspart (Novolog) 100 UNIT/1 ML VIAL 0 SC SEE ADMIN CRITERIA Diabetes (Reported) BEFORE MEALS Blood Insulin Sugar Units <80 0 100-150 4 151-200 6 201-250 10 251-300 12 301-350 14 351-400 16 >400 18 units and call doctor Insulin Detemir (Levemir) 100 U/ML TOREY 20 UNITS SC BID DIABETES (Reported) Lisinopril 40 MG TABLET 1 TAB PO DAILY BP (Reported) Loratadine (Claritin) 10 MG TABLET 1 TAB PO DAILY ALLERGIES (Reported) Lorazepam (Ativan) 1 MG TABLET 2 TAB PO QAM ANXIETY (Reported) Meclizine HCl 25 MG TABLET 1 TAB PO TIDPRN UNKNOWN (Reported) Meloxicam 7.5 MG TABLET 1-2 TAB PO DAILY PAIN/INFLAMMATION (Reported) Metformin HCl 1,000 MG TABLET 2 TAB PO BID DM (Reported) Metoprolol Succinate 100 MG TAB.ER.24H 1 TAB PO DAILY HTN (Reported) Multivitamin (Multiple Vitamins) 1 TAB TAB 1 TAB PO DAILY SUPPLEMENT ( Reported) Pregabalin (Lyrica) 100 MG CAPSULE 2 CAP PO DAILY FIBROMYALGIA (Reported) Topiramate (Topamax) 200 MG TABLET 0.5 TAB PO BID Seizure (Reported) Venlafaxine HCl 100 MG TABLET 2 TAB PO DAILY MENTAL HEALTH (Reported) Review of Systems Review of Systems: Back pain. 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 ; Cause: Pneumonia. FATHER, ; Cause: Lung cancer. BROTHER, ; Cause: Brainstem hemorrhage. Psychosocial History Where Do You Live? Home Who Do You Live With? spouse Services at Home: None Primary Language: Polish Smoking Status: Former Smoker ETOH Use: denies use Illicit Drug Use: denies illicit drug use Functional Ability ADLs Independent: dressing, eating, toileting, bathing. Ambulation: independent IADLs Independent: shopping, housework, finances, food prep, telephone, transportation , medication admin. Exam & Diagnostic Data Vital Signs and I&O Vital Signs Date Time Temp Pulse Resp B/P Pulse O2 O2 Flow FiO2 Ox Delivery Rate 04/25 816 98.3 94 18 126/62 93 Room Air 04/24 2229 97.9 84 20 130/68 94 Room Air 04/24 2127 97.2 84 16 123/67 97 Room Air 04/248 80 16 134/72 96 Room Air 04/24 1951 87 16 117/56 04/24 1938 Room Air 04/24 1913 97.6 89 16 134/80 97 Room Air Intake & Output 04/25 1600 04/25 0804/25 0000 04/24 1600 04/24 0804/24 0000 Intake Total 120 300 Output Total Balance 120 300 Intake, Oral 120 300 Patient 210 lb Weight Physical Exam: General: WD/ obese female in NAD; alert and oriented x 3 HEENT: NC/AT, PERRL, EOMI, clear oropharynx Neck: no JVD, no carotid bruit Heart: RRR w/o murmur Lungs: clear bilaterally Abdomen: soft, obese, NT, +ve bowel sounds Extremities: no edema Diagnostic Data EKG Results sinus rhythm Assessment/Plan Assessment/Plan * This patient has chest pain with atypical features to it including its prolonged presentation without any electrocardiographic changes or rise in cardiac enzymes. There are alternative reasons for pain that this patient may have as well including musculoskeletal pain and esophageal discomfort which will all be stongly considered. Nevertheless, this patient has copious risk factors for coronary artery disease. As such, I have a moderate range suspicion of myocardial ischemia and would recommend risk stratification with a persantine stress test in the morning. We will also consider a cardiac catheterization to lay the issue of possible ischemia to rest unless this stress test is unequivocally and completely normal. * Check a fasting lipid profile and obtain and echocardiogram. * Begin aspirin 162mg daily and continue her Atorvastatin and fenofibrate. Add a NTG patch at 0.4mg/hr for 12 hours daily. Continue her lisinopril, metoprolol and cardizem. * Begin Protonix 40mg daily. * I would consider stopping Topamax unless truly needed since this medication is associated with chest pain and palpitations. Consult Acknowledgment - Thank you for your consult request.
--- NOTE | 2016-04-25 12:57 | PN- Att Addend ---
Attending Addendum Attending Brief Note Mrs. Hollingsworth was interviewed and examined. Her EMR was reviewed. She is essentially asymptomatic today. Her vital signs are stable. Telemetry shows sinus rhythm Physical exam reveals her chest to be clear. Cardiovascular exam reveals a regular rate and rhythm. Her abdomen is soft and nontender. Extremities without edema. Her laboratory values are essentially normal. Serial troponins are negative. This is a 66-year-old female with episode of chest pain and comorbidities of hypertension, dyslipidemia, and T2DM possibly poorly controlled. I agree with her continued observation and evaluation by stress test in the a.m. with possible continuation to catheterization. Beta haydee will be held but other antihypertensives and rostral medications will be continued. She will be placed on sliding scale insulin coverage. Her maintenance medication will be continued. Dr. Dupont's input is greatly appreciated.
[2016-04-25 15:33] VITALS: BP 132/72
[2016-04-25 23:40] VITALS: BP 130/66
--- NOTE | 2016-04-26 07:28 | PN- Housestaff ---
Subjective Follow-up For: chest pain/Rule out ACS Subjective: She seen and examined this morning. She was lying in bed in no acute distress, no chest pain, sob, dizziness, afebrile, vitals wnl.she is go for persentine stress test today. Review of Systems Constitutional: Reports: see HPI. Objective Last 24 Hrs of Vital Signs/I&O Vital Signs Date Time Temp Pulse Resp B/P Pulse O2 O2 Flow FiO2 Ox Delivery Rate 04/26 1749 84 144/82 04/26 1748 84 144/82 04/26 1608 98.0 68 20 122/70 94 Physical Exam General Appearance: Alert, Oriented X3, Cooperative Cardiovascular: Regular Rate, Normal S1, Normal S2, No Murmurs Lungs: Clear to Auscultation, Normal Air Movement Abdomen: Normal Bowel Sounds, Soft, No Tenderness Extremities: No Clubbing, No Cyanosis, No Edema Current Medications: Current Medications Sig/Jayy Start time Last Medication Dose Route Stop Time Status Admin Acetaminophen 650 MG Q6P PRN 04/24 2230 DCD 02 PO 1053 Aripiprazole 10 MG DAILY 04/25 1000 DCD 02/ PO 1717 Atorvastatin Calcium 80 MG 2200 04/25 2200 DCD 02/ PO 2256 Cyanocobalamin 2,500 MCG DAILY 04/25 1000 DCD 02/ PO 1716 Diltiazem HCl 240 MG DAILY 04/25 1000 DCD 02/ PO 1748 Fenofibrate 48 MG DAILY 04/25 1000 DCD 02/ PO 1718 Furosemide 40 MG DAILY 04/25 1000 DCD 02/06 PO 1715 Heparin Sodium 5,000 UNIT Q8 04/24 2200 DCD 02 (Porcine) SC 1715 Insulin Aspart 0 TIDAC 04/27 0800 DCD 02 SC 1745 Insulin Aspart 3 UNITS .STK-MED ONE 04/26 1740 DC SC 02/ 1741 Insulin Detemir 20 UNITS BID 02 2205 DCD 02 SC 2255 Insulin Human Regular 0 Q6 /05 2359 DC 02/ SC 0516 Lidocaine 1 PAT 0600 02/ 0600 DCD 04/26 EXT 0630 Lisinopril 40 MG DAILY 04/25 1000 DCD 02/ PO 1749 Loratadine 10 MG DAILY 04/25 1000 DCD 02/ PO 1718 Lorazepam 2 MG QAM 02/05 1000 DCD 04/25 PO 0905 Metoprolol Succinate 100 MG DAILY 04/25 1935 DCD 04/26 PO 1748 Morphine Sulfate 2 MG Q4P PRN 04/24 2230 DCD IV Multivitamins 1 TAB DAILY 04/25 1000 DCD 04/26 Therapeutic PO 1715 Nitroglycerin 0.4 MG DAILY 04/25 1604 DCD 04/25 TOP 1740 Omeprazole 40 MG BID 04/25 2200 DCD 04/26 PO 1716 Oxycodone HCl 5 MG Q6H 04/24 2230 DCD 04/26 PO 1745 Pregabalin 200 MG DAILY 04/25 1000 DCD 04/26 PO 1745 Topiramate 100 MG BID 04/24 2215 DCD 04/26 PO 1716 Venlafaxine HCl 200 MG DAILY 04/25 1000 DCD 04/26 PO 1717 Assessment/Plan Assessment: This is a 66-year-old lady with past medical history of uncontrolled diabetes mellitus who presents to the emergency department with chest pain. We will admit the patient to the telemetry floor for subsequent monitoring. Her chest pain is likely musculoskeletal in origin given its root every 2 stability and worsening with palpation. We will however rule out ACS with serial troponins and EKGs. Rule out ACS Rroponins and EKGs negative for any acute findings, he is to go for cardiac stress test today.. Cardiology following, will follow recs. No Aspirin due to allegry, nitroglycerin, Statin History of diabetes Begin patient on Novolin sliding scale Keep blood sugars below 150 T Levemir 20 units twice a day. Hemoglobin A1c in a.m. if above 9.0 consider endocrinology consult Seizure disorder Patient's seizures are likely due to resection. We will continue patient on home medication Topiramate 100mg. Orthostatic changes. Likely multifactorial and are willing to medication regimen and will may also include worsening diabetes, micro-vessel and neurological changes. PT consult on Tuesday. If patient continues to experience worsening orthostasis may consider follow up as an outpaitnet. Chronic back pain Pain relief with NSAID, ketorolac If pain worsens consider morphine. Lidocaine patch for added comfort PT consult in a.m. History of depression Continue venlafaxine DVT prophylaxis ALP S And Lovenox Diet Consistent carbohydrate diet two, sodium restriction Code Full code Problem List: 1. Low back pain 2. Chest pain Pain Ratin Pain Location: none Pain Goal: Remain pain free Pain Plan: mild pp Tomorrow's Labs & Rationales: none
[2016-04-26 08:05] LABS: ABSOLUTE BASOPHIL COUNT 0 /CUMM (0.0-0.2); ABSOLUTE EOSINOPHIL COUNT 0.2 /CUMM (0.0-0.7); ABSOLUTE GRANULOCYTE CT 2.3 /CUMM (1.4-6.5); ABSOLUTE LYMPH COUNT 2.7 /CUMM (1.2-3.4); ABSOLUTE MONOCYTE COUNT 0.5 /CUMM (0.10-0.60); BASOPHIL % 0.3 % (0.0-2.0); EOSINOPHIL % 2.8 % (0-5); GRANULOCYTE % 40.6 % (42.2-75.2); HEMATOCRIT 30.7 % (37-47); MEAN CORPUSCULAR HGB 18.7 PG (27.0-31.0); MEAN CORPUSCULAR HGB CONC 31.2 G/DL (33.0-37.0); MEAN CORPUSCULAR VOLUME 59.9 FL (81.0-99.0); MEAN PLATELET VOLUME 8.6 FL (7.4-10.4); PLATELET COUNT 191 /CUMM (130-400); RBC DISTRIBUTION WIDTH 20.1 % (11.5-14.5); RED BLOOD CELL CT 5.12 /CUMM (4.20-5.40); WHITE BLOOD CELL COUNT 5.6 /CUMM (4.8-10.8)
[2016-04-26 08:50] VITALS: BP 112/76
--- NOTE | 2016-04-26 10:27 | PN- Att Addend ---
Attending Addendum Attending Brief Note 66-year-old white female admitted over the weekend with chest pain on observation. Was seen by Dr. Dupont and patient still having some discomfort in her vital signs are stable and her lungs are clear and heart is regular. Patient will have a chemical stress test and depending on the results we'll decide if she can go home or needs further evaluation. Current Medications Sig/Jayy Start time Last Medication Dose Route Stop Time Status Admin Acetaminophen 650 MG Q6P PRN 04/24 2230 AC 04/25 PO 0632 Aripiprazole 10 MG DAILY 04/25 1000 AC 04/25 PO 0904 Atorvastatin Calcium 80 MG 2200 04/25 2200 AC 04/25 PO 2256 Cyanocobalamin 2,500 MCG DAILY 04/25 1000 AC 04/25 PO 0907 Diltiazem HCl 240 MG DAILY 04/25 1000 AC 04/25 PO 0904 Dipyridamole 55 MG ONE ONE 04/26 799 DC Dextrose/Water 29 ML IV 04/26 0803 Fenofibrate 48 MG DAILY 04/25 1000 AC 04/25 PO 0904 Furosemide 40 MG DAILY 04/25 1000 AC 04/25 PO 0904 Heparin Sodium 5,000 UNIT Q8 04/24 2200 AC 04/26 (Porcine) SC 0506 Insulin Aspart 0 TIDAC 04/25 0800 DC 04/25 SC 1740 Insulin Detemir 20 UNITS BID 04/24 2205 AC 04/25 SC 2255 Insulin Human Regular 0 Q6 04/25 2359 AC 04/26 SC 0516 Lidocaine 1 PAT DAILY 04/26 1000 DC EXT Lidocaine 1 PAT 0600 04/26 0600 AC 04/26 EXT 0630 Lidocaine 1 PAT Q24H 04/24 2230 DC 04/25 EXT 0000 Lisinopril 40 MG DAILY 04/25 1000 AC 04/25 PO 0905 Loratadine 10 MG DAILY 04/25 1000 AC 04/25 PO 0904 Lorazepam 2 MG QAM 04/25 1000 AC 04/25 PO 0905 Metoprolol Succinate 100 MG DAILY 04/25 1935 AC 04/25 PO 2256 Morphine Sulfate 2 MG Q4P PRN 04/24 2230 AC IV Multivitamins 1 TAB DAILY 04/25 1000 AC 04/25 Therapeutic PO 0904 Nitroglycerin 0.4 MG DAILY 04/25 1604 AC 04/25 TOP 1740 Nitroglycerin 0.2 MG DAILY PRN 02/04 2230 DC TOP Omeprazole 40 MG BID 04/25 2199 04/25 PO 2256 Oxycodone HCl 5 MG Q6H 04/24 223 04/26 PO 0506 Patient Medication 1 UNIT ONE NR 04/25 1999 [facility] 04/25 2030 Patient Medication 1 UNIT ONE NR 04/25 1615 [facility] 04/25 1700 Pregabalin 200 MG DAILY 04/25 1000 AC 04/25 PO 0905 Topiramate 100 MG BID 04/24 221 04/25 PO 2256 Venlafaxine HCl 200 MG DAILY 04/25 1000 04/25 PO 0904 Laboratory Tests 04/26/16 0720: Anion Gap 10, Estimated GFR > 60, BUN/Creatinine Ratio 25.0, Glucose 161 H, Calcium 8.8, Total Bilirubin 0.3, AST 18, ALT 40, Alkaline Phosphatase 117, Total Protein 6.1 L, Albumin 3.5, Globulin 2.6, Albumin/Globulin Ratio 1.3, CBC w Diff NO MAN DIFF REQ, RBC 5.12, MCV 59.9 L, MCH 18.7 L, RDW 20.1 H, MPV 8.6 , Gran % 40.6 L, Lymphocytes % 47.9, Monocytes % 8.4, Eosinophils % 2.8, Basophils % 0.3, Absolute Granulocytes 2.3, Absolute Lymphocytes 2.7, Absolute Monocytes 0.5, Absolute Eosinophils 0.2, Absolute Basophils 0, PUBS MCHC 31.2 L Laboratory Tests 04/26/16 0720: Anion Gap 10, Estimated GFR > 60, BUN/Creatinine Ratio 25.0, Glucose 161 H, Calcium 8.8, Total Bilirubin 0.3, AST 18, ALT 40, Alkaline Phosphatase 117, Total Protein 6.1 L, Albumin 3.5, Globulin 2.6, Albumin/Globulin Ratio 1.3, CBC w Diff NO MAN DIFF REQ, RBC 5.12, MCV 59.9 L, MCH 18.7 L, RDW 20.1 H, MPV 8.6 , Gran % 40.6 L, Lymphocytes % 47.9, Monocytes % 8.4, Eosinophils % 2.8, Basophils % 0.3, Absolute Granulocytes 2.3, Absolute Lymphocytes 2.7, Absolute Monocytes 0.5, Absolute Eosinophils 0.2, Absolute Basophils 0, PUBS MCHC 31.2 L 04/25/16 0100: Troponin I < 0.01, Triglycerides 497 H, Cholesterol 173, LDL Cholesterol, Calc ND, HDL Cholesterol 35 L, Cholesterol/HDL Ratio 5 H 04/24/161925: Anion Gap 15, Estimated GFR > 60, BUN/Creatinine Ratio 25.0, Glucose 210 H, Calcium 9.6, Magnesium 2.1, Total Bilirubin 0.4, AST 21, ALT 39, Alkaline Phosphatase 144 H, Troponin I < 0.01, Total Protein 7.3, Albumin 4.3, Globulin 3.0, Albumin/Globulin Ratio 1.4, Cholesterol 200, CBC w Diff NO MAN DIFF REQ, RBC 5.80 H, MCV 60.3 L, MCH 18.5 L, RDW 21.3 H, MPV 8.4, Gran % 49.8, Lymphocytes % 39.2, Monocytes % 7.6, Eosinophils % 3.1, Basophils % 0.3, Absolute Granulocytes 3.7, Absolute Lymphocytes 2.9, Absolute Monocytes 0.6, Absolute Eosinophils 0.2, Absolute Basophils 0, PUBS MCHC 30.7 L 04/24/161923: PT 9.9, INR 0.94, APTT 26 Vital Signs Date Time Temp Pulse Resp B/P Pulse O2 O2 Flow FiO2 Ox Delivery Rate 04/26 0850 98.1 77 18 112/76 97 Room Air
--- NOTE | 2016-04-26 11:07 | Patient Discharge Instructions ---
Discharge Instructions General Discharge Information You were seen/treated for: chest pain Seizure disorder Chronic back pain History of depression History of diabetes Special Instructions: Please follow-up with her primary care physician, [facility] in 1 week. Topamax has been stopped as this medication is associated with chest pain and palpitations. Please talk to her primary care physician about alternatives if really needed. Diet Continue normal diet: Yes Recommended Diet: Heart Healthy Activity Activity Self Limited: Yes Acute Coronary Syndrome Inclusion Criteria At DC or during hospital stay patient has or had the following: ACS DIAGNOSIS No Discharge Core Measures Meds if any: Prescribed or Continued at Discharge RUTHIE/ARB if EF <40% No Meds if any: NOT Prescribed or Continued at Discharge Congestive Heart Failure Inclusion Criteria At DC or during hospital stay patient has or had the following: CHF DIAGNOSIS No Discharge Core Measures Meds if any: Prescribed or Continued at Discharge Meds if any: NOT Prescribed or Continued at Discharge Cerebrovascular accident Inclusion Criteria At DC or during hospital stay patient has or had the following: CVA/TIA Diagnosis No Discharge Core Measures Meds if any: Prescribed or Continued at Discharge Meds if any: NOT Prescribed or Continued at Discharge Venous thromboembolism Inclusion Criteria VTE Diagnosis No VTE Type NONE VTE Confirmed by (Test) NONE Discharge Core Measures - Per Current guidelines, there needs to be overlap - treatment for the first 5 days of Warfarin therapy. - If discharged on Warfarin prior to 5 days of - overlap therapy, the patient will need to be - assessed for post discharge needs including - *Post discharge parental anticoagulation - *Warfarin and/or parental anticoagulation education - *Follow up date to check INR post discharge At least 5 days overlap therapy as Inpatient No Meds if any: Prescribed or Continued at Discharge Note: Overlap Therapy is Warfarin and Anticoagulant Meds if any: NOT Prescribed or Continued at Discharge
[2016-04-26 16:08] VITALS: BP 122/70
--- NOTE | 2016-04-26 16:49 | IV DIPYRIDAMOLE NUCLEAR STRESS ---
Clinical Diagnosis: Chest Pain Practice Or Student Teacher: Sherice Ren IV DIPYRIDAMOLE INFUSED: 55 mg IV AMINOPHYLLINE INFUSED: 125 mg PATIENT WEIGHT: 210 lbs INTERPRETATION: The patient's baseline EKG revealed sinus rhythm and was within normal limits at 76 BPM. Baseline B/P 130/72 mm Hg. The patient received 55 mg of dipyridamole infused intravenously over a 4 minute period. TC-99M or Myoview was injected after dipyridamole infusion. The patient complained of a transient headache and chest pain that promptly resolved following the administration of IV aminophylline 125 mg x 1. There were no EKG changes seen following pharmacologic infusion. Arrhythmias: Multiple atrial premature contractions and occasional ventricular premature contractions. IMPRESSION: The test was supervised by the interpreting Client Care Consultant, who was in attendance during the entire test. No EKG evidence of stress induced myocardial ischemia. See separately dictated Nuclear Report.
--- NOTE | 2016-04-26 17:16 | NUCLEAR MEDICINE REPORT ---
PERSANTINE STRESS AND RESTING SPECT MYOCARDIAL PERFUSION IMAGING STUDY WITH GATED SPECT IMAGES: CLINICAL INDICATION: Chest pain, hypertension. PROCEDURE: Regional myocardial perfusion was assessed using a 1 day protocol. Stress images were obtained on 04/26/2016 following the intravenous administration of 24.1 mCi Tc 99m Myoview. Stress consisted of 55 mg Persantine given intravenously. Following the sestamibi injection, 125 mg aminophylline was given intravenously. Rest images were obtained 04/26/2016 following the intravenous administration of 38.3 mCi Technetium 99m Myoview. Single photon emission tomographic (SPECT) images were obtained. SPECT images were acquired in a 64 x 64 matrix of 64 projections over 180 degrees. These were reconstructed into standard short axis, horizontal and vertical long axis cardiac projections. FINDINGS: The post stress images demonstrate the left ventricular chamber to be normal in size. There is homogeneous distribution of activity in the left ventricular myocardium with no regions of abnormally decreased activity noted. The resting images also demonstrate homogeneous distribution of activity in the left ventricular myocardium, and are not significantly changed from the post stress images. The images were obtained using a gated SPECT technique, which permits visualization of wall motion and calculation of the left ventricular ejection fraction. No left ventricular wall motion abnormalities are noted on either the stress or resting study. The calculated left ventricular ejection fraction is 74% on the stress study. Compared to the previous study dated 04/08/2014, there has not been a significant change in perfusion. The gated images from the previous study are not available for review and the wall motion cannot be compared. Ejection fraction is not significantly changed from the previous study when it was 63%. IMPRESSION: Normal Persantine stress and resting myocardial perfusion study with normal left ventricular wall motion and ejection fraction.
[2016-04-26 17:49] VITALS: BP 144/82
--- NOTE | 2016-04-26 18:35 | PN- Cardiology ---
Subjective Subjective: Still experiencing some mild chest discomfort in the sternal region. Palpation to the area in question elicits discomfort that the patient states is similar to what she has been experiencing. Objective Vital Signs and I&Os Vital Signs Date Time Temp Pulse Resp B/P Pulse O2 O2 Flow FiO2 Ox Delivery Rate 04/26 1749 84 144/82 04/26 1748 84 144/82 04/26 1608 98.0 68 20 122/70 94 04/26 0850 98.1 77 18 112/76 97 Room Air 04/25 2340 98.3 92 20 130/66 94 Room Air 04/25 2256 90 130/66 Intake & Output 04/26 1600 04/26 0800 04/26 0000 04/25 1600 04/25 0800 04/25 0000 Intake Total 240 50 600 400 120 300 Output Total 400 Balance -160 50 600 400 120 300 Intake, IV 0 Intake, Oral 240 50 600 400 120 300 Number 1 0 Bowel Movements Output, Urine 400 Patient 210 lb Weight Physical Exam: Well-developed, obese female in no acute distress. Vital signs: See above. Neck: No JVD, no bruits. Lungs: Clear to auscultation bilaterally. Heart: S1, S2 normal murmur, gallop, or rub appreciated. Extremities: No edema. Current Medications: Current Medications Sig/Jayy Start time Last Medication Dose Route Stop Time Status Admin Acetaminophen 650 MG Q6P PRN 04/24 2230 AC 04/26 PO 1053 Aripiprazole 10 MG DAILY 04/25 1000 AC 04/26 PO 1717 Atorvastatin Calcium 80 MG 0 04/25 2199 AC 04/25 PO 2256 Cyanocobalamin 2,500 MCG DAILY 04/25 1000 AC 04/26 PO 1716 Diltiazem HCl 240 MG DAILY 04/25 1000 AC 04/26 PO 1748 Dipyridamole 55 MG ONE ONE 04/26 799 DC Dextrose/Water 29 ML IV 04/26 08 Fenofibrate 48 MG DAILY 04/25 1000 AC 04/26 PO 1718 Furosemide 40 MG DAILY 04/25 1000 AC 04/26 PO 1715 Heparin Sodium 5,000 UNIT Q8 04/240 AC 04/26 (Porcine) SC 1715 Insulin Aspart 0 TIDAC 04/27 0800 AC 04/26 SC 1745 Insulin Aspart 0 TIDAC 04/25 08 DC 04/25 SC 1740 Insulin Detemir 20 UNITS BID 04/24 2205 AC 04/25 SC 2255 Insulin Human Regular 0 Q6 04/25 2359 DC 04/26 SC 0516 Lidocaine 1 PAT DAILY 04/26 1000 DC EXT Lidocaine 1 PAT 0600 04/26 0600 AC 04/26 EXT 0630 Lidocaine 1 PAT Q24H 04/24 2230 DC 04/25 EXT 0000 Lisinopril 40 MG DAILY 04/25 1000 AC 04/26 PO 1749 Loratadine 10 MG DAILY 04/25 1000 AC 04/26 PO 1718 Lorazepam 2 MG QAM 04/25 1000 AC 04/25 PO 0905 Metoprolol Succinate 100 MG DAILY 04/25 1935 AC 04/26 PO 1748 Morphine Sulfate 2 MG Q4P PRN 04/24 2230 AC IV Multivitamins 1 TAB DAILY 04/25 1000 AC 04/26 Therapeutic PO 1715 Nitroglycerin 0.4 MG DAILY 04/25 1604 AC 04/25 TOP 1740 Nitroglycerin 0.2 MG DAILY PRN 04/24 2230 DC TOP Omeprazole 40 MG BID 04/25 2200 AC 04/26 PO 1716 Oxycodone HCl 5 MG Q6H 04/24 2230 AC 04/26 PO 1745 Patient Medication 1 UNIT ONE NR 04/25 1999 IN Teaching ED 04/25 2030 Pregabalin 200 MG DAILY 04/25 1000 AC 04/26 PO 1745 Topiramate 100 MG BID 04/24 2215 AC 04/26 PO 1716 Venlafaxine HCl 200 MG DAILY 04/25 1000 AC 04/26 PO 1717 Results Last 48 Hrs of Labs/Mics: Laboratory Tests 04/26/16 0720: Anion Gap 10, Estimated GFR > 60, BUN/Creatinine Ratio 25.0, Glucose 161 H, Calcium 8.8, Total Bilirubin 0.3, AST 18, ALT 40, Alkaline Phosphatase 117, Total Protein 6.1 L, Albumin 3.5, Globulin 2.6, Albumin/Globulin Ratio 1.3, CBC w Diff NO MAN DIFF REQ, RBC 5.12, MCV 59.9 L, MCH 18.7 L, RDW 20.1 H, MPV 8.6 , Gran % 40.6 L, Lymphocytes % 47.9, Monocytes % 8.4, Eosinophils % 2.8, Basophils % 0.3, Absolute Granulocytes 2.3, Absolute Lymphocytes 2.7, Absolute Monocytes 0.5, Absolute Eosinophils 0.2, Absolute Basophils 0, PUBS MCHC 31.2 L 04/25/16 0100: Troponin I < 0.01, Triglycerides 497 H, Cholesterol 173, LDL Cholesterol, Calc ND, HDL Cholesterol 35 L, Cholesterol/HDL Ratio 5 H 04/24/161925: Anion Gap 15, Estimated GFR > 60, BUN/Creatinine Ratio 25.0, Glucose 210 H, Calcium 9.6, Magnesium 2.1, Total Bilirubin 0.4, AST 21, ALT 39, Alkaline Phosphatase 144 H, Troponin I < 0.01, Total Protein 7.3, Albumin 4.3, Globulin 3.0, Albumin/Globulin Ratio 1.4, Cholesterol 200, CBC w Diff NO MAN DIFF REQ, RBC 5.80 H, MCV 60.3 L, MCH 18.5 L, RDW 21.3 H, MPV 8.4, Gran % 49.8, Lymphocytes % 39.2, Monocytes % 7.6, Eosinophils % 3.1, Basophils % 0.3, Absolute Granulocytes 3.7, Absolute Lymphocytes 2.9, Absolute Monocytes 0.6, Absolute Eosinophils 0.2, Absolute Basophils 0, PUBS MCHC 30.7 L 04/24/161923: PT 9.9, INR 0.94, APTT 26 Recent Imaging Studies: Pharmacologic stress test (04/25/2016) Normal Persantine stress and resting myocardial perfusion study with normal left ventricular wall motion and ejection fraction. Assessment/Plan Assessment/Plan Middle-aged female with multiple risk factors for coronary artery disease who presents with atypical (prolonged) chest discomfort, no electrocardiographic changes or troponin I elevation to suggest any myocardial necrosis who underwent a pharmacologic stress test today that revealed no ST changes or nuclear evidence of ischemia. Suspect that, based on the fact the patient has arthritis. The discomfort is musculoskeletal. This is also supported by the fact that is reproducible. Suggested she try using Tylenol arthritis for the musculoskeletal discomfort. Okay for discharge from a cardiac standpoint. We will follow-up with Mrs. Hollingsworth on an outpatient basis for further evaluation and management. Continue telemetry? No
[2016-04-26] MEDS ORDERED: LIDODERM1 EACH TOP (19:27)
--- NOTE | 2016-04-27 07:40 | ECHOCARDIOGRAM REPORT ---
MARIA ALEJANDRA RUBIO Age: 66 : 1950 Gender: F Exam Date: 04/26/2016 08:06 Exam Location: [address] Ht (in): 63 Wt (lb): 210 BSA: 2.10 BP: 130 / 60 Ordering Physician: BETINA HAYWARD MD Referring Physician: BETINA HAYWARD MD Technologist: [facility] Room Number: 179-1 Indications: Chest Pain Rhythm: Sinus Technical Quality: good FINDINGS Left Ventricle Normal left ventricular size and wall thickness. Normal systolic function with no obvious regional wall motion abnormalities. Normal left ventricular diastolic filling pattern for age. The ejection fraction is visually estimated at 70%. Right Ventricle The right ventricle is normal in size and function. Right Atrium The right atrium is normal in size. Left Atrium The left atrium is normal in size. The interatrial septum is intact. Mitral Valve The mitral valve is normal in structure and function. There is no mitral regurgitation. Aortic Valve Structurally normal aortic valve without significant sclerosis or stenosis. There is no aortic regurgitation. Tricuspid Valve The tricuspid valve is normal in structure and function. There is trace tricuspid regurgitation. Pulmonary artery pressures are mildly elevated to 39.8mmHg. Pulmonic Valve Structurally normal pulmonic valve. There is no pulmonic regurgitation. Pericardium Normal pericardium without effusion. No pleural effusion. Great Vessels Normal aortic root dimension. The aortic arch and great vessels are well seen and are normal. CONCLUSIONS 1. Normal EF of 70%. 2. Trace tricuspid regurgitation. 3. Mild pulmonary hypertension. Kavin Dupont M.D. (Electronically Signed) Final Date: 27 April 2016 07:39 MEASUREMENTS (Male / Female) Normal Values 2D ECHO LV Diastolic Diameter PLAX 4.8 cm 4.2 - 5.9 / 3.9 - 5.3 cm LV Systolic Diameter PLAX 2.8 cm 2.1 - 4.0 cm LV Fractional Shortening PLAX 41.7 % 25 - 46 % LV Ejection Fraction 2D Teich 72.5 % IVS Diastolic Thickness 0.9 cm LVPW Diastolic Thickness 0.9 cm LV Relative Wall Thickness 0.4 RV Internal Dim ED PLAX 3.3 cm 1.9 - 3.8 cm LVOT Diameter 1.8 cm Aortic Root Diameter 2.5 cm LA Systolic Diameter LX 3.4 cm 3.0 - 4.0 / 2.7 - 3.8 cm LA Volume 40.0 cm 18 - 58 / 22 - 52 cm Ascending Aorta Diameter 3.0 cm DOPPLER AV Peak Velocity 153.0 cm/s AV Peak Gradient 9.4 mmHg AV Mean Velocity 94.1 cm/s AV Mean Gradient 4.0 mmHg AV Velocity Time Integral 31.6 cm LVOT Peak Velocity 95.5 cm/s LVOT Peak Gradient 3.6 mmHg LVOT Mean Velocity 56.5 cm/s LVOT Mean Gradient 2.0 mmHg LVOT Velocity Time Integral 25.1 cm LVOT Stroke Volume 63.9 cm AV Area Cont Eq vti 2.0 cm AV Area Cont Eq pk 1.6 cm MV Peak Velocity 101.0 cm/s MV Peak Gradient 4.1 mmHg MV Mean Velocity 56.6 cm/s MV Mean Gradient 2.0 mmHg Mitral E Point Velocity 75.5 cm/s Mitral A Point Velocity 64.7 cm/s Mitral E to A Ratio 1.2 MV PHT Velocity 103.0 cm/s MV Deceleration [place] 720.0 cm/s MV Pressure Half Time 42.9 ms MV Area PHT 5.1 cm MV Deceleration Time 225.0 ms TR Peak Velocity 273.0 cm/s TR Peak Gradient 29.8 mmHg Right Atrial Pressure 10.0 mmHg Pulmonary Artery Systolic Pressu 39.8 mmHg Right Ventricular Systolic Press 39.8 mmHg PV Peak Velocity 91.0 cm/s PV Peak Gradient 3.3 mmHg PV Mean Velocity 60.8 cm/s PV Mean Gradient 2.0 mmHg PV Velocity Time Integral 19.3 cm LV E' Lateral Velocity 9.3 cm/s Mitral E to LV E' Lateral Ratio 8.2 LV E' Septal Velocity 7.9 cm/s Mitral E to LV E' Septal Ratio 9.6
== END 2016-04-26 20:36 ==
LOC: ENRESERVDT → ENRESERVTM → ERH 19:07 → 1NO 20:20 → ERHI 20:20 → 1NO 22:41
PROVIDERS: Emergency Medicine; Student in an Organized Health Care Education/Training Program; ADMIT Internal Medicine
DX: R07.9 Chest pain, unspecified (principal); E78.5 Hyperlipidemia, unspecified; I10 Essential (primary) hypertension; I48.91 Unspecified atrial fibrillation; E11.9 Type 2 diabetes mellitus without complications; F41.9 Anxiety disorder, unspecified; F32.9 Major depressive disorder, single episode, unspecified; E04.1 Nontoxic single thyroid nodule; R56.9 Unspecified convulsions; M54.9 Dorsalgia, unspecified
CPT/HCPCS: 2000; 78452; 93005; 93010; 93016; 93017; 93306; 96372; A9502; G0378; J0401; J1245; J1644; J1815; J3490; J7508

== ENCOUNTER 2016-05-25 23:52 | Emergency (ER) | payer OTHER ==
[~2016-05-25] VITALS: Ht 160 cm; Wt 97.1 kg
[~2016-05-25 23:52] MED LIST changes: +CYCLOBENZAPRINE5 M2 PO; +INVOKANA100 M1 PO; +LIDODERM1 EACH TOP; +MECLIZINE HCL25 MG PO; +MELOXICAM7.5 M1 PO; +METFORMIN HCL1000 M1 PO; +VITAMIN B122500 MC1 PO
--- NOTE | 2016-05-26 00:43 | ED INFLUENZA/URI COMPLAINT ---
History of Present Illness General Chief Complaint: Upper Respiratory Sx/Fever Stated Complaint: " I HAVE THE FLU" NOW HAVE COUGH AND WHEEZING Source: patient Exam Limitations: no limitations Vital Signs & Intake/Output Vital Signs & Intake/Output ED Intake and Output 05/27 0000 05/26 1200 Intake Total Output Total Balance Patient 214 lb Weight Allergies Coded Allergies: shellfish derived (Severe, HIVES 05/26/16) Penicillins (RASH AND SWELLING 05/26/16) aspirin (UPSET STOMACH AND BLOATING 05/26/16) codeine (REALLY BAD STOMACH PAIN 05/26/16) Reconcile Medications Albiglutide (Tanzeum) 50 MG/0.5 ML PEN.INJCTR 50 UNITS SC QMON DM (Reported) Aripiprazole (Abilify) 10 MG TAB 1 TAB PO DAILY MENTAL HEALTH (Reported) Atorvastatin Calcium (Lipitor) 80 MG TABLET 1 TAB PO DAILY CHOLESTEROL ( Reported) Azithromycin 250 MG TABLET 1 DP PO AD URI (Reported) 2 the first day followed by 1 for days 2-5 Benzonatate 100 MG CAPSULE 1 CAP PO TID COUGH (Reported) Canagliflozin (Invokana) 100 MG TABLET 1 TAB PO DAILY DM (Reported) Cyanocobalamin (Vitamin B-12) (Vitamin B12) 2,500 MCG TABLET 1 TAB PO DAILY SUPPLEMENT (Reported) DILTIAZEM HCL (Diltiazem 24HR ER) 240 MG CAP.ER.24H 1 TAB PO DAILY HEART ( Reported) Fenofibrate (Tricor) 48 MG TABLET 1 TAB PO DAILY CHOLESTEROL/TRIGLYCERIDES ( Reported) Furosemide 40 MG TABLET 1 TAB PO DAILY DIURETIC (Reported) Insulin Aspart (Novolog) 100 UNIT/1 ML VIAL 0 SC SEE ADMIN CRITERIA Diabetes (Reported) BEFORE MEALS Blood Insulin Sugar Units <80 0 100-150 4 151-200 6 201-250 10 251-300 12 301-350 14 351-400 16 >400 18 units and call doctor Insulin Detemir (Levemir) 100 U/ML TOREY 20 UNITS SC BID DIABETES (Reported) Lisinopril 40 MG TABLET 1 TAB PO DAILY BP (Reported) Loratadine (Claritin) 10 MG TABLET 1 TAB PO DAILY ALLERGIES (Reported) Lorazepam (Ativan) 1 MG TABLET 2 TAB PO QAM ANXIETY (Reported) Meclizine HCl 25 MG TABLET 1 TAB PO TIDPRN UNKNOWN (Reported) Meloxicam 7.5 MG TABLET 1-2 TAB PO DAILY PAIN/INFLAMMATION (Reported) Metformin HCl 1,000 MG TABLET 2 TAB PO BID DM (Reported) Metoprolol Succinate 100 MG TAB.ER.24H 1 TAB PO DAILY HTN (Reported) Mometasone Furoate (Nasonex) 50 MCG SPRAY.PUMP 2 SPRAY NASB DAILY SINUS CONGESTION Multivitamin (Multiple Vitamins) 1 TAB TAB 1 TAB PO DAILY SUPPLEMENT ( Reported) Pregabalin (Lyrica) 100 MG CAPSULE 2 CAP PO DAILY FIBROMYALGIA (Reported) Topiramate (Topamax) 200 MG TABLET 0.5 TAB PO BID Seizure (Reported) Venlafaxine HCl 100 MG TABLET 2 TAB PO DAILY MENTAL HEALTH (Reported) Triage Note: TRIAGE: PATIENT TO ER FROM HOME REPORTS PRODUCTIVE CLEAR COUGH W/ SNEEZING AND WHEEZING SINCE TUESDAY, SAW PCP AND WAS GIVEN BENZONATE 100MG Q8H PRN COUGH AND AZITHROMYCIN 250MG W/O RELIEF. SX ONSET TUESDAY, BEGAN RX YESTERDAY. Triage Nurses Notes Reviewed? yes Onset: Gradual Duration: getting worse Severity: severe Severity Numbers: 7 HPI: Patient is a 66-year-old female with past medical history of diabetes, hypertension who presents to emergency room with a four-day history of cough congestion shortness of breath upon ambulation and generalized weakness and fatigue and fever and chills in which patient on Tuesday 3 days ago was given a azithromycin pack and Tessalon Perles for symptoms in which patient presents to emergency room with worsening symptoms as stated above. Patient now states that she has wheezing. Patient does not smoke and denies any similar sick contacts. Denies any chest pain sore throat ear pain neck pain neck stiffness. (MASON EARLY,LOBO) Past History Travel History Traveled to [place] past 21 day No Medical History Any Pertinent Medical History? 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 ; Cause: Pneumonia. FATHER, ; Cause: Lung cancer. BROTHER, ; Cause: Brainstem hemorrhage. Hx Contributory? No (LOBO ALY) Review of Systems Review of Systems Constitutional: Reports: see HPI, chills, fever. EENTM: Reports: see HPI, nasal congestion. Respiratory: Reports: see HPI, cough, short of breath. Cardiovascular: Denies: chest pain, peripheral edema. GI: Reports: no symptoms. Genitourinary: Reports: no symptoms. Musculoskeletal: Reports: no symptoms. Skin: Reports: no symptoms. Neurological/Psychological: Reports: no symptoms. Hematologic/Endocrine: Reports: no symptoms. Immunologic/Allergic: Reports: no symptoms. All Other Systems: Reviewed and Negative (LOBO ALY) Physical Exam Physical Exam General Appearance: no apparent distress, alert Ears, Nose, Throat: moist mucous membrane, hearing grossly normal, Tympanic normal, pharynx normal, nasal congestion, nasal drainage Comments: Well-developed well-nourished person in no acute distress HEENT:, extraocular motion intact, no nystagmus. Pupils equally round and reactive to light and accommodation. Nose is atraumatic. External auditory canal and Tympanic membranes clear. Pharynx normal. No swelling or edema. Neck: Supple, no lymphadenopathy, normal range of motion without pain or tenderness Back: Nontender, no CVA tenderness. Cardiovascular: Regular rate and rhythms no murmurs rubs or gallops, normal JVP Respiratory: Chest nontender. No respiratory distress.breath sounds clear to auscultation bilaterally Abdomen: Soft, nontender nondistended, no appreciable organomegaly. Normal bowel sounds. No ascites Extremity: No edema, no calf tenderness to palpation, normal and equal pulses. Neuro: Alert oriented x3, motor sensory normal, Skin: No appreciable rash on exposed skin, skin is warm and dry. Psych: Mood and affect is normal, memory and judgment is normal. Core Measures Severe Sepsis Present: No Septic Shock Present: No (LOBO ALY) Progress Differential Diagnosis: influenza, meningitis, neutropenia, otitis, pneumonia, pharyngitis, sinusitis Diagnostic Imaging: Viewed by Me: Radiology Read. CXR Impression: no acute abnormality Initial ED EKG: none Hand-Off Endorsed To: DINA JOHNSON,JOSH Borrego Pending: labs Comments: PATIENT: MARIA ALEJANDRA RUBIO PRESENT AGE: 66 PATIENT ACCOUNT NO: [id number] : 52 LOCATION: [facility] ORDERING PHYSICIAN: LOBO EARLY SERVICE DATE: 05/26/16 EXAM TYPE: RAD - XRY-CHEST XRAY, PA AND LATERAL EXAMINATION: XR CHEST CLINICAL INFORMATION: Cough, fever COMPARISON: 04/24/2016 TECHNIQUE: 2 views of the chest were obtained. FINDINGS: The lungs are clear with no focal consolidation. No evidence of pneumothorax, pulmonary edema, or pleural effusions. Cardiac size is within normal limits. Calcification is present at the aortic arch. No acute osseous findings are seen. IMPRESSION: No acute cardiopulmonary findings. (MASON EARLY,LOBO) Plan of Care: Orders Procedure Date/time Status LACTIC ACID 05/26 334 Active RAPID VIRAL INFLUENZA A 05/26 34 Active LOWER RESPIRATORY CULTURE 05/26 34 Active BLOOD CULTURE 05/26 34 Active LACTIC ACID 05/26 34 Complete COMPREHENSIVE METABOLIC PANEL 05/26 34 Complete CBC WITHOUT DIFFERENTIAL 05/26 34 Complete Laboratory Tests 05/26/16 0038: Anion Gap 13, Estimated GFR > 60, BUN/Creatinine Ratio 24.3, Glucose 221 H, Lactic Acid 2.6 H, Calcium 9.6, Total Bilirubin 0.4, AST 26, ALT 38, Alkaline Phosphatase 128 H, Total Protein 7.0, Albumin 4.1, Globulin 2.9, Albumin/ Globulin Ratio 1.4, CBC w Diff NO MAN DIFF REQ, RBC 5.67 H, MCV 59.8 L, MCH 18.5 L, RDW 20.3 H, MPV 8.3, Gran % 56.4, Lymphocytes % 29.7, Monocytes % 10.5 H, Eosinophils % 3.2, Basophils % 0.2, Absolute Granulocytes 3.6, Absolute Lymphocytes 1.9, Absolute Monocytes 0.7 H, Absolute Eosinophils 0.2, Absolute Basophils 0, PUBS MCHC 30.8 L Microbiology 05/26 104 NASOPHARYN: Influenza Virus A & B Rapid Smear - RECD 05/26 34 LOWER RESP: Respiratory Culture - ORD 05/26 34 LOWER RESP: Gram Stain - ORD 05/26 34 BLOOD: Blood Culture - ORD 05/265 BLOOD: Blood Culture - ORD Patient currently is in no apparent distress labs currently are pending. Discussed hand off with Dr. Carr for further evaluation (LOBO ALY) Departure Departure Condition: Stable Referrals: DARRIN LUEVANO MD (PCP/Family) Departure Forms: Customer Survey General Discharge Information (LOBO ALY) Departure Disposition: HOME OR SELF CARE Clinical Impression Primary Impression: Sinus congestion Additional Instructions: TAKE MUCINEX (NOT MUCINEX D) TWICE A DAY NEEDED USE NASAL SPRAY DIRECTED RETURN IF SYMPTOMS WORSEN OR FOR ANY CONCERNS Prescriptions: Current Visit Scripts Mometasone Furoate (Nasonex) 2 SPRAY NASB DAILY #1 INHAL PA/BRUSH POLISHER Co-Sign Statement Statement: ED Attending supervision documentation- [X] I saw and evaluated the patient. I have also reviewed all the pertinent lab results and diagnostic results. I agree with the findings and the plan of care as documented in the PA's/BRUSH POLISHER's documentation. [X] I have reviewed the ED Record and agree with the PA's/BRUSH POLISHER's documentation. [] Additions or exceptions (if any) to the PAs/BRUSH POLISHER's note and plan are summarized below: [] (DINA JOHNSON,JOSH Borrego)
[2016-05-26 00:46] LABS: ABSOLUTE BASOPHIL COUNT 0 /CUMM (0.0-0.2); ABSOLUTE EOSINOPHIL COUNT 0.2 /CUMM (0.0-0.7); ABSOLUTE GRANULOCYTE CT 3.6 /CUMM (1.4-6.5); ABSOLUTE LYMPH COUNT 1.9 /CUMM (1.2-3.4); ABSOLUTE MONOCYTE COUNT 0.7 /CUMM (0.10-0.60); BASOPHIL % 0.2 % (0.0-2.0); EOSINOPHIL % 3.2 % (0-5); GRANULOCYTE % 56.4 % (42.2-75.2); HEMATOCRIT 33.9 % (37-47); MEAN CORPUSCULAR HGB 18.5 PG (27.0-31.0); MEAN CORPUSCULAR HGB CONC 30.8 G/DL (33.0-37.0); MEAN CORPUSCULAR VOLUME 59.8 FL (81.0-99.0); MEAN PLATELET VOLUME 8.3 FL (7.4-10.4); PLATELET COUNT 192 /CUMM (130-400); RBC DISTRIBUTION WIDTH 20.3 % (11.5-14.5); RED BLOOD CELL CT 5.67 /CUMM (4.20-5.40); WHITE BLOOD CELL COUNT 6.3 /CUMM (4.8-10.8)
--- NOTE | 2016-05-26 01:18 | RADIOLOGY REPORT ---
EXAMINATION: XR CHEST CLINICAL INFORMATION: Cough, fever COMPARISON: 04/24/2016 TECHNIQUE: 2 views of the chest were obtained. FINDINGS: The lungs are clear with no focal consolidation. No evidence of pneumothorax, pulmonary edema, or pleural effusions. Cardiac size is within normal limits. Calcification is present at the aortic arch. No acute osseous findings are seen. IMPRESSION: No acute cardiopulmonary findings.
[2016-05-26] MEDS ORDERED: NASONEX17 GM NASB (02:31)
[2016-05-26 02:55] VITALS: BP 131/62
[2016-05-26] MEDS ORDERED: BENZONATATE100 M1 PO (03:17)
[2016-05-26] MEDS ORDERED: AZITHROMYCIN250 M1 PO (03:17)
== END 2016-05-26 02:56 ==
LOC: ERH 23:52
PROVIDERS: Physician Assistant
DX: R09.81 Nasal congestion (principal); R06.02 Shortness of breath; R53.1 Weakness; R50.9 Fever, unspecified
CPT/HCPCS: 1263; 1395; 87040; 87070; 87804; 87804-59

== ENCOUNTER 2016-10-15 20:01 | Emergency (ER) | payer OTHER ==
[~2016-10-15] VITALS: Ht 160 cm; Wt 95.3 kg
[~2016-10-15 20:01] MED LIST changes: +AZITHROMYCIN250 M1 PO; +BENZONATATE100 M1 PO; +NASONEX17 GM NASB
[2016-10-15 20:06] VITALS: BP 150/76
--- NOTE | 2016-10-15 21:54 | ED GENERAL ADULT ---
History of Present Illness General Chief Complaint: Upper Extremity Problem Stated Complaint: LEFT ARM PAIN X3 MONTHS Source: patient Exam Limitations: no limitations Vital Signs & Intake/Output Vital Signs & Intake/Output Vital Signs Date Time Temp Pulse Resp B/P B/P Pulse O2 O2 Flow FiO2 Mean Ox Delivery Rate 10/15 2005 97.8 92 16 150/76 97 Room Air Allergies Coded Allergies: shellfish derived (Severe, HIVES 05/26/16) Penicillins (RASH AND SWELLING 05/26/16) aspirin (UPSET STOMACH AND BLOATING 05/26/16) codeine (REALLY BAD STOMACH PAIN 05/26/16) Triage Note: PT STATES THAT SHE HAS BEEN HAVING L ARM PAIN FOR ABOUT 3 MONTHS THAT INCREASES WHEN SHE MOVES IT. PAIN ON PALPATION , FOR THE PAST WEEK PAIN SHOOTS INTO HER HAND AND INTO HER SHOULDER. DENIES INJURY Triage Nurses Notes Reviewed? yes HPI: 66-year-old female with a history of CVA, seizure, meningitis, A. fib (not on AC ), hypertension, hyperlipidemia, diabetes presenting with atraumatic intermittent left arm pain 2 years, worsening over the past 3 months. Patient reports pain over the lateral elbow that radiates down her forearm, and will occasionally ascend up the upper portion of her arm, pain is worse with movement and alleviated with rest. Has been trying Tylenol without improvement. Denies fevers, numbness, paresthesias. (JUANITA WILLOUGHBY,LICHA) Reconcile Medications Albiglutide (Tanzeum) 50 MG/0.5 ML PEN.INJCTR 50 UNITS SC QMON DM (Reported) Aripiprazole (Abilify) 10 MG TAB 1 TAB PO DAILY MENTAL HEALTH (Reported) Atorvastatin Calcium (Lipitor) 80 MG TABLET 1 TAB PO DAILY CHOLESTEROL ( Reported) Azithromycin 250 MG TABLET 1 DP PO AD URI (Reported) 2 the first day followed by 1 for days 2-5 Benzonatate 100 MG CAPSULE 1 CAP PO TID COUGH (Reported) Canagliflozin (Invokana) 100 MG TABLET 1 TAB PO DAILY DM (Reported) Cyanocobalamin (Vitamin B-12) (Vitamin B12) 2,500 MCG TABLET 1 TAB PO DAILY SUPPLEMENT (Reported) DILTIAZEM HCL (Diltiazem 24HR ER) 240 MG CAP.ER.24H 1 TAB PO DAILY HEART ( Reported) Fenofibrate (Tricor) 48 MG TABLET 1 TAB PO DAILY CHOLESTEROL/TRIGLYCERIDES ( Reported) Furosemide 40 MG TABLET 1 TAB PO DAILY DIURETIC (Reported) Insulin Aspart (Novolog) 100 UNIT/1 ML VIAL 0 SC SEE ADMIN CRITERIA Diabetes (Reported) BEFORE MEALS Blood Insulin Sugar Units <80 0 100-150 4 151-200 6 201-250 10 251-300 12 301-350 14 351-400 16 >400 18 units and call doctor Insulin Detemir (Levemir) 100 U/ML TOREY 20 UNITS SC BID DIABETES (Reported) Lisinopril 40 MG TABLET 1 TAB PO DAILY BP (Reported) Loratadine (Claritin) 10 MG TABLET 1 TAB PO DAILY ALLERGIES (Reported) Lorazepam (Ativan) 1 MG TABLET 2 TAB PO QAM ANXIETY (Reported) Meclizine HCl 25 MG TABLET 1 TAB PO TIDPRN UNKNOWN (Reported) Meloxicam 7.5 MG TABLET 1-2 TAB PO DAILY PAIN/INFLAMMATION (Reported) Metformin HCl 1,000 MG TABLET 2 TAB PO BID DM (Reported) Metoprolol Succinate 100 MG TAB.ER.24H 1 TAB PO DAILY HTN (Reported) Mometasone Furoate (Nasonex) 50 MCG SPRAY.PUMP 2 SPRAY NASB DAILY SINUS CONGESTION Multivitamin (Multiple Vitamins) 1 TAB TAB 1 TAB PO DAILY SUPPLEMENT ( Reported) Naproxen (Naprosyn) 500 MG TABLET 1 TAB PO BID PRN left arm pain Pregabalin (Lyrica) 100 MG CAPSULE 2 CAP PO DAILY FIBROMYALGIA (Reported) Topiramate (Topamax) 200 MG TABLET 0.5 TAB PO BID Seizure (Reported) Venlafaxine HCl 100 MG TABLET 2 TAB PO DAILY MENTAL HEALTH (Reported) (DINA JOHNSON,JOSH Borrego) Past History Travel History Traveled to [place] past 21 day No Medical History Any Pertinent Medical History? 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 ; Cause: Pneumonia. FATHER, ; Cause: Lung cancer. BROTHER, ; Cause: Brainstem hemorrhage. Hx Contributory? No (LICHA GRANT PA-C) Review of Systems Review of Systems Constitutional: Reports: no symptoms. EENTM: Reports: no symptoms. Respiratory: Reports: no symptoms. Cardiovascular: Reports: no symptoms. GI: Reports: no symptoms. Genitourinary: Reports: no symptoms. Musculoskeletal: Reports: joint pain (left elbow pain). Skin: Reports: no symptoms. Neurological/Psychological: Reports: no symptoms. Hematologic/Endocrine: Reports: no symptoms. Immunologic/Allergic: Reports: no symptoms. (LICHA GRANT PA-C) Physical Exam Physical Exam General Appearance: well developed/nourished, no apparent distress, alert, awake , comfortable Head: atraumatic Eyes: Bilateral: normal appearance. Respiratory: normal breath sounds, lungs clear Cardiovascular: regular rate/rhythm, normal peripheral pulses Extremities: normal inspection, normal range of motion, tenderness, there is tenderness to palpation directly over the left lateral epicondyle, palpation over this area causes pain to radiate down the left forearm, the left upper extremity is neurovascularly intact with unrestricted range of motion at the shoulder, elbow, wrist joints. Neurologic/Psych: awake, alert, oriented x 3, normal gait, normal mood/affect Skin: intact, normal color, warm/dry Core Measures ACS in differential dx? No CVA/TIA Diagnosis: No Severe Sepsis Present: No Septic Shock Present: No (LICHA GRANT PA-C) Progress Differential Diagnoses I considered the following diagnoses in my evaluation of the patient: [Lateral epicondylitis versus fracture versus musculoskeletal strain] Plan of Care: Exam consistent with lateral epicondylitis. Patient's medication list includes meloxicam but she is unsure why she takes this medication. States that she has been taking it without any pain relief. Instructed to discontinue this medication as it is providing her no pain relief. IM Toradol given in ED with some pain improvement. Discharged with Rx naproxen. Initial ED EKG: none (LICHA GRANT PA-C) Departure Departure Disposition: HOME OR SELF CARE Condition: Stable Clinical Impression Primary Impression: Left elbow pain Referrals: JANEE JOHNSON,DERCI LUEVANO MD,DARRIN (PCP/Family) Additional Instructions: Take 500 mg of naproxen twice a day with a meal as needed for pain. Follow-up with your primary care provider for further evaluation. Return to the emergency department for any new or worsening symptoms. Departure Forms: Customer Survey General Discharge Information (LICHA GRANT PA-C) Departure Prescriptions: Current Visit Scripts Naproxen (Naprosyn) 1 TAB PO BID PRN left arm pain #60 TAB PA/PIN PUSHER Co-Sign Statement Statement: ED Attending supervision documentation- [] I saw and evaluated the patient. I have also reviewed all the pertinent lab results and diagnostic results. I agree with the findings and the plan of care as documented in the PA's/PIN PUSHER's documentation. [X] I have reviewed the ED Record and agree with the PA's/PIN PUSHER's documentation. [] Additions or exceptions (if any) to the PAs/PIN PUSHER's note and plan are summarized below: [] (DINA JOHNSON,JOSH Borrego) Critical Care Note Critical Care Note Critical Care Time: non-applicable (LICHA GRANT PA-C)
[2016-10-15] MEDS ORDERED: NAPROSYN500 M1 PO (22:09)
== END 2016-10-15 22:21 ==
LOC: ERH 20:01
DX: M25.522 Pain in left elbow (principal)
CPT/HCPCS: 96372; J1885

== ENCOUNTER 2017-08-14 11:52 | Emergency (ER) | payer OTHER, MEDICARE ==
[~2017-08-14] VITALS: Ht 160 cm; Wt 95.3 kg
[~2017-08-14 11:52] MED LIST changes: -ABILIFY 10 MG10 MG PO; +ABILIFY10 M1 PO; -ATORVASTATIN CA80 MG PO; +DILTIAZEM 24HR240 MG PO; -DILTIAZEM HCL240 MG PO; -LEVEMIR100 U/ML SC; +LEVEMIR100 UNIT/1 SC; +LIPITOR80 M1 PO; +LISINOPRIL40 M1 PO; -LISINOPRIL40 MG PO; +MAPAP500 M2 PO; +MELOXICAM15 M1 PO; +MULTIPLE VITAM1 EAC2 PO; -MULTIVITAMIN1 TAB PO; +NAPROSYN500 M1 PO; +PERCOCET 5-3251 EACH PO
--- NOTE | 2017-08-14 12:08 | ED UPPER/LOWER EXTREMITY COMPL ---
History of Present Illness General Chief Complaint: Lower Extremity Problems Stated Complaint: L KNEE PAIN X2 WEEKS SEVERELY INCREASING TODAY Source: patient Exam Limitations: no limitations Vital Signs & Intake/Output Vital Signs & Intake/Output Vital Signs Date Time Temp Pulse Resp B/P B/P Pulse O2 O2 Flow FiO2 Mean Ox Delivery Rate 08/14 1502 97.9 88 18 114/68 96 Room Air 08/14 1404 98.7 81 18 112/66 94 Room Air 08/14 1201 97.3 92 20 107/70 96 Room Air Allergies Coded Allergies: shellfish derived (Severe, HIVES 05/26/16) Penicillins (RASH AND SWELLING 05/26/16) codeine (REALLY BAD STOMACH PAIN 05/26/16) aspirin (UPSET STOMACH AND BLOATING 03/27/17) Reconcile Medications Acetaminophen (Mapap) 500 MG CAPSULE 2 CAP PO PRN PAIN (Reported) Albiglutide (Tanzeum) 50 MG/0.5 ML PEN.INJCTR 50 UNITS SC QMON DM (Reported) Aripiprazole (Abilify) 10 MG TABLET 1 TAB PO DAILY MENTAL HEALTH (Reported) Atorvastatin Calcium (Lipitor) 80 MG TABLET 1 TAB PO DAILY CHOLESTEROL ( Reported) Canagliflozin (Invokana) 100 MG TABLET 1 TAB PO DAILY DM (Reported) Cyanocobalamin (Vitamin B-12) (Vitamin B12) 2,500 MCG TABLET 1 TAB PO DAILY SUPPLEMENT (Reported) Diltiazem HCl (Diltiazem 24HR ER) 240 MG CAP.ER.24H 1 CAP PO DAILY HEART/BP ( Reported) Fenofibrate (Tricor) 48 MG TABLET 1 TAB PO DAILY CHOLESTEROL/TRIGLYCERIDES ( Reported) Furosemide 40 MG TABLET 1 TAB PO DAILY DIURETIC (Reported) Insulin Aspart (Novolog) 100 UNIT/1 ML VIAL 0 SC SEE ADMIN CRITERIA Diabetes (Reported) BEFORE MEALS Blood Insulin Sugar Units <80 0 100-150 4 151-200 6 201-250 10 251-300 12 301-350 14 351-400 16 >400 18 units and call doctor Insulin Detemir (Levemir) 100 UNIT/ML VIAL 20 UNITS SC BID DM (Reported) Lisinopril 40 MG TABLET 1 TAB PO DAILY BP (Reported) Loratadine (Claritin) 10 MG TABLET 1 TAB PO DAILY ALLERGIES (Reported) LORazepam (Ativan) 1 MG TABLET 1 TAB PO BID ANXIETY (Reported) Meclizine HCl 25 MG TABLET 1 TAB PO TID PRN DIZZINESS (Reported) Meloxicam 15 MG TABLET 1 TAB PO DAILY PAIN/INFLAMMATION (Reported) Metformin HCl 1,000 MG TABLET 0.5 TAB PO BID DM (Reported) Metoprolol Succinate 100 MG TAB.ER.24H 1 TAB PO DAILY HTN (Reported) Multivitamin (Multiple Vitamins) 1 EACH TABLET 1 TAB PO DAILY SUPPLEMENT ( Reported) Oxycodone HCl/Acetaminophen (Percocet 5-325 MG Tablet) 5 MG-325 MG TABLET 1 TAB PO 4XDP PRN PAIN six...[id number] Pregabalin (Lyrica) 100 MG CAPSULE 1 CAP PO BID FIBROMYALGIA (Reported) Topiramate (Topamax) 200 MG TABLET 0.5 TAB PO BID Seizure (Reported) Tramadol HCl 50 MG TABLET 1 TAB PO BIDP PRN PAIN DO NOT TAKE THIS WHILE OPERATING MOTOR VEHICLES Venlafaxine HCl 100 MG TABLET 1 TAB PO BID MENTAL HEALTH (Reported) Triage Note: REPORTS SEVERE LEFT KNEE PAIN X SEVERAL WEEKS H OWEVER IT HAS BEEN WORSENING SIGNIFICANTLY SINCE YESTERDAY. NOW HAVING DIFFICULTY AMBULATING DUE TO THE PAIN. Triage Nurses Notes Reviewed? yes Onset: Gradual Duration: constant Timing: recent history Severity: moderate Severity Numbers: 5 HPI: Patient is a 67-year-old female who presents emergency room with concerns of a left knee pain complaint 2 weeks. Patient states that pain has been made worse with ambulation and palpation is noted considerable swelling to the knee. Denies any mechanism injury or recent trauma or excessive physical activity. Patient denies any fever chills patient has been taking Tylenol with minimal relief of symptoms. Patient has a remote history of left knee arthroscopic surgery (Jeronimo Mejia) Past History Travel History Traveled to [place] past 21 day No Medical History Any Pertinent Medical History? 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 ; Cause: Pneumonia. FATHER, ; Cause: Lung cancer. BROTHER, ; Cause: Brainstem hemorrhage. Hx Contributory? No (Jeronimo Mejia) Review of Systems Review of Systems Constitutional: Reports: no symptoms. EENTM: Reports: no symptoms. Respiratory: Reports: no symptoms. Cardiovascular: Reports: no symptoms. Gastrointestinal/Abdominal: Reports: no symptoms. Genitourinary: Reports: no symptoms. Musculoskeletal: Reports: see HPI, joint pain, joint swelling. Skin: Reports: no symptoms. Neurological/Psychological: Reports: no symptoms. Hematologic/Endocrine: Reports: no symptoms. Immunological: Reports: no symptoms. All Other Systems: Reviewed and Negative (Jeronimo Mejia) Physical Exam Physical Exam General Appearance: no apparent distress, alert, comfortable Head: atraumatic Eyes: Bilateral: normal appearance. Ears, Nose, Throat: hearing grossly normal Neck: normal inspection Cardiovascular/Respiratory: no respiratory distress Peripheral Pulses: 2+ dorsalis pedis (L) Neurologic/Tendon: normal sensation, normal motor functions, normal tendon functions, responds to pain, no evidence tendon injury, no pulse deficit Skin: intact, normal color, warm/dry Comments: Left hip normal inspection nontender straight-leg raise performed, left knee noted generalized swelling and point tenderness to ointment line decreased active range of motion to 45 of flexion no erythema negative valgus stress test negative varus stress test negative anterior drawer test negative posterior drawer test Left ankle trace swelling noted nontender (Jeronimo Mejia) Progress Differential Diagnosis: arterial insufficiency, cellulitis, CHF, compartment syndrome, contusion, dislocation, DVT, fracture, gout, septic arthritis, sprain, tendon injury Plan of Care: Orders Procedure Date/time Status US-UNILATERAL VENOUS DOPPLER 08/14 1314 Active X-rays were unremarkable for fractures however there was noted osteoarthritis Discussed x-rays with patient Ultrasound was negative for DVT. Abdias wrap was placed to left knee. Patient was given prescription for walker for fall prevention. She was strongly advised to follow-up with orthopedic doctor. Diagnostic Imaging: Viewed by Me: Radiology Read, Ultrasound. Radiology Impression: no acute abnormality Comments: PATIENT: MARIA ALEJANDRA RUBIO PRESENT AGE: 67 PATIENT ACCOUNT NO: [id number] : 52 LOCATION: [facility] ORDERING PHYSICIAN: Jeronimo EARLY SERVICE DATE: 08/14/17 EXAM TYPE: US - US-UNILATERAL VENOUS DOPPLER EXAMINATION: US TRIPLEX LOWER EXTREMITY, LEFT CLINICAL INFORMATION: Left leg swelling and pain COMPARISON: None TECHNIQUE: Color-flow triplex imaging with spectral analysis and compression Doppler were performed on the left lower extremity. FINDINGS: Respiratory variation, normal compression and augmented flow are noted throughout the left lower extremity. The visualized common femoral vein, superficial femoral vein, profunda femoral vein, popliteal vein and midcalf peroneal and posterior tibial venous segments show no evidence of deep venous thrombosis. There is no Pardo's cyst. IMPRESSION: No evidence of deep venous thrombosis involving the left lower extremity. DICTATED BY: Estrella Yang MD DATE/TIME DICTATED:08/14/171402 PAGE TECHNICIAN:DK DATE/TIME TRANSCRIBED:08/14/171402 PATIENT: MARIA ALEJANDRA RUBIO PRESENT AGE: 67 PATIENT ACCOUNT NO: [id number] : 52 LOCATION: [facility] ORDERING PHYSICIAN: Jeronimo EARLY SERVICE DATE: 08/14/17 EXAM TYPE: RAD - XRY-KNEE COMPLETE LEFT EXAMINATION: XR KNEE, LEFT CLINICAL INFORMATION: Left knee pain COMPARISON: None TECHNIQUE: Four views of the left knee. FINDINGS: Small suprapatellar effusion. No fracture line is seen. Apparent periosteal marking along the lateral aspect of the proximal tibial metaphysis is likely normal anatomic variant simulated by the tibial tuberosity. Alignment is anatomic. Mild patellofemoral compartment degenerative change. IMPRESSION: No evidence of acute osseous abnormality. Apparent periosteal marking along the lateral aspect of the proximal tibial metaphysis is likely normal anatomic variant simulated by the tibial tuberosity. Small suprapatellar effusion. Mild patellofemoral compartment osteoarthritis. DICTATED BY: Suzy Correa MD DATE/TIME DICTATED:08/14/17 (Jeronimo Mejia) Departure Departure Disposition: HOME OR SELF CARE Condition: Stable Clinical Impression Primary Impression: Right knee pain Secondary Impressions: Arthritis Referrals: Justen Nevarez MD (PCP/Family) Phillip Trevino MD Additional Instructions: As discussed begin elevating foot for swelling to begin icing the area 20 minutes every 2 hours for pain and inflammation, begin using the Abdias wrap for swelling, begin using the prescription of the walker provided to YOU IN the emergency room until you can walk without pain If no better next week follow-up with orthopedic Dr. Trevino. Prescriptions are waiting at [facility] Begin the prescription of tramadol for pain Departure Forms: Customer Survey General Discharge Information Prescriptions: Current Visit Scripts Tramadol HCl 1 TAB PO BIDP PRN PAIN #15 TAB DO NOT TAKE THIS WHILE OPERATING MOTOR VEHICLES Rolling Walker UNIT SEE ADMIN CRITERIA #1 Use as instructed. dx RIGHT KNEE PAIN/OSTEOARTHRITIS (Lennie EARLY,Jeronimo) PA/TRANSIT MAN Co-Sign Statement Statement: ED Attending supervision documentation- x I saw and evaluated the patient. I have also reviewed all the pertinent lab results and diagnostic results. I agree with the findings and the plan of care as documented in the PA's/TRANSIT MAN's documentation. [] I have reviewed the ED Record and agree with the PA's/TRANSIT MAN's documentation. [] Additions or exceptions (if any) to the PAs/TRANSIT MAN's note and plan are summarized below: [] (Merced JOHNSON,Howard)
--- NOTE | 2017-08-14 13:17 | RADIOLOGY REPORT ---
EXAMINATION: XR KNEE, LEFT CLINICAL INFORMATION: Left knee pain COMPARISON: None TECHNIQUE: Four views of the left knee. FINDINGS: Small suprapatellar effusion. No fracture line is seen. Apparent periosteal marking along the lateral aspect of the proximal tibial metaphysis is likely normal anatomic variant simulated by the tibial tuberosity. Alignment is anatomic. Mild patellofemoral compartment degenerative change. IMPRESSION: No evidence of acute osseous abnormality. Apparent periosteal marking along the lateral aspect of the proximal tibial metaphysis is likely normal anatomic variant simulated by the tibial tuberosity. Small suprapatellar effusion. Mild patellofemoral compartment osteoarthritis.
--- NOTE | 2017-08-14 14:09 | ULTRASOUND REPORT ---
EXAMINATION: US TRIPLEX LOWER EXTREMITY, LEFT CLINICAL INFORMATION: Left leg swelling and pain COMPARISON: None TECHNIQUE: Color-flow triplex imaging with spectral analysis and compression Doppler were performed on the left lower extremity. FINDINGS: Respiratory variation, normal compression and augmented flow are noted throughout the left lower extremity. The visualized common femoral vein, superficial femoral vein, profunda femoral vein, popliteal vein and midcalf peroneal and posterior tibial venous segments show no evidence of deep venous thrombosis. There is no Pardo's cyst. IMPRESSION: No evidence of deep venous thrombosis involving the left lower extremity.
[2017-08-14] MEDS ORDERED: TRAMADOL HCL50 M1 PO (14:49)
[2017-08-14] MEDS ORDERED: RW (14:50)
[2017-08-14 15:02] VITALS: BP 114/68
== END 2017-08-14 15:03 ==
LOC: ERH 11:52
DX: M17.12 Unilateral primary osteoarthritis, left knee (principal); M25.462 Effusion, left knee; M79.605 Pain in left leg
CPT/HCPCS: 73562-LT